=== PATIENT | male | born 1955 | race Caucasian/White ===

== ENCOUNTER 2018-12-22 05:20 | Inpatient (IN) | payer BC, OTHER ==
[~2018-12-22] VITALS: Ht 182.9 cm; Wt 95.3 kg
[2018-12-22] MEDS ORDERED: PANTOPRAZOLE 40 MG/10 ML VIAL INJ IV ONE (07:15)
[2018-12-22] MEDS ORDERED: ONDANSETRON HCL 4 MG/2 ML VIAL IV ONE (07:15)
[2018-12-22 07:17] LABS: Basophils # (auto) 0 uL; Basophils % (auto) 0.6 % (0.0-2.0); Eosinophils # (auto) 0 uL; Eosinophils % (auto) 0.9 % (0.0-7.0); Hematocrit 37.9 % (41.0-53.0); Hemoglobin 12.6 g/dL (13.5-17.5); Lymphocytes # (auto) 0.3 uL; Lymphocytes % (auto) 10.6 % (10.0-50.0); Mean Corpuscular Hemoglobin 33.7 pg (28.0-32.0); Mean Corpuscular Hgb Conc. 33.3 g/dL (32.0-36.0); Mean Corpuscular Volume 101.2 fL (80.0-100.0); Monocytes # (auto) 0.2 uL; Monocytes % (auto) 6.1 % (0.0-12.0); Neutrophils # (auto) 2.4 uL; Neutrophils % (auto) 81.8 % (37.0-80.0); Platelet Count (auto) 107 10^3/uL (140-450); Red Blood Cells 3.75 10^6/uL (4.5-5.90); Red Cell Distribution Width 16.1 % (11.8-14.3); White Blood Cell 2.9 10^3/uL (4.4-10.8)
[2018-12-22 07:31] LABS: INR 1.08 (0.9-1.15); Partial Thromboplastin Time 24.9 sec (23.64-32.05)
[2018-12-22 07:39] LABS: Albumin 2.8 g/dL (3.4-5.0); Calcium 8.8 mg/dL (8.5-10.1)
[2018-12-22 07:43] LABS: BUN/Creatinine Ratio 17.3; Bilirubin, Total 2.7 mg/dL (0.2-1.0); Total Protein 6.7 g/dL (6.4-8.2)
[2018-12-22] MEDS ORDERED: MORPHINE SULF INJ 2 MG/ML SYRINGE 1ML IV ONE (08:30)
[2018-12-22 09:24] LABS: Urine Amorphous Crystal FEW /hpf (None Seen); Urine Bacteria NONE SEEN /hpf (None Seen); Urine Blood TRACE /uL (Negative); Urine Specific Gravity 1.029 (1.001-1.035); Urine WBC 2 /hpf (0 - 3)
[2018-12-22] MEDS ORDERED: DEXTROSE (50%) 50ML SYRG IV PRN (12:00)
[2018-12-22] MEDS ORDERED: MORPHINE SULF INJ 2 MG/ML SYRINGE 1ML IV PRN (12:00)
[2018-12-22] MEDS ORDERED: SODIUM CHLORIDE 0.9% 500 ML IV ONE (12:00)
[2018-12-22] MEDS ORDERED: NITROGLYCERIN 0.4 MG SL TAB SL PRN (12:00)
[2018-12-22] MEDS: InsuLIN REG 1unit/0.01ml Soln (100units/ml) SC SCH ×2 (12:42→17:58)
[2018-12-22] MEDS: ACCU-CHEK COMFORT CURVE STRIP VI SCH ×2 (12:42→17:58)
--- NOTE | 2018-12-22 13:20 | NUR ---
Admit to [facility] CHAIDEZ admitted to [facility] via gurney on mattress and boxsprings supervisor, and portable 02. Patient transferred to bed, connected to unit monitoring and oxygen, and weighed by bedscale. Patient oriented to JAMIE HIRSCH RN primary RN, unit, room, bed, and unit policies regarding patient care and visiting hours. All questions and concerns addressed, patient verbalized understanding. Patient made aware about the plan of care, will need to collect the stool sample to Lab, and NPO.
[2018-12-22 14:00] VITALS: BP_SYST 127; BP_DIAS 5; BP_DIAS 75
--- NOTE | 2018-12-22 14:35 | NUR ---
Received a call from Dr. Wren that patient will have a dialysis tomorrow in the morning.
--- NOTE | 2018-12-22 15:05 | NUR ---
Echocardiogram obtain at the bedside.
[2018-12-22] MEDS: MORPHINE SULF INJ 2 MG/ML SYRINGE 1ML IV PRN (16:02)
[2018-12-22] MEDS: ONDANSETRON HCL 4 MG/2 ML VIAL IV PRN (16:02)
[2018-12-22] MEDS ORDERED: OMEP20TA PO (16:28)
[2018-12-22] MEDS ORDERED: SITA50TA PO (16:28)
[2018-12-22] MEDS ORDERED: GABA300C10 PO (16:28)
--- NOTE | 2018-12-22 17:57 | NUR ---
king maker at the bedside.
--- NOTE | 2018-12-22 18:36 | NUR ---
Patient sleeping at this time, dialysis on going, will continue to monitor and care, blood sugar 189 and on dialysis at this time, patient still NPO, will hold insulin as order at this time and check again after finishing of dialysis, will continue to monitor sign of hypo-hyperglycemia. Patient made aware.
[2018-12-22 21:35] LABS: Hematocrit 18.4 % (41.0-53.0)
[2018-12-22 21:38] LABS: Hemoglobin 6.2 g/dL (13.5-17.5)
--- NOTE | 2018-12-22 21:42 | NUR ---
HGB 6.2, First result, 6.1 and thought perhaps tainted. Redraw 6.2 hospitalist paged for orders. Pt had dialysis and previous HGB taken was 12.6. Pt stable at this time, current bp 91/48. Asymptomatic at this time. Will continue to monitor. p
[2018-12-22] MEDS: PANTOPRAZOLE 40 MG/10 ML VIAL INJ IV SCH (22:00)
--- NOTE | 2018-12-22 22:26 | NUR ---
Informed hospitalist of hgb 6.2, requested redraw. Informed redraw was already done, requested another redraw. H & H ordered. Will continue to monitor.
[2018-12-22 23:15] VITALS: BP 93/55
[2018-12-22 23:30] VITALS: BP 100/55
[2018-12-22 23:45] VITALS: BP 89/49
[2018-12-23] VITALS (25 sets, daily range): BP systolic 80–114; BP diastolic 43–81
[2018-12-23 00:18] LABS: Hemoglobin 5.5 g/dL (13.5-17.5)
--- NOTE | 2018-12-23 00:19 | NUR ---
HGB 5.5, hospitalist paged.
--- NOTE | 2018-12-23 05:34 | NUR ---
2 Units PRBC ordered. 1st unit almost completed. Pt not showing any S/S of reaction. Pt denies any symptoms as well. VS stable throughout infusion. Will continue to monitor and infuse second unit after current unit has infused.
[2018-12-23] MEDS: ACCU-CHEK COMFORT CURVE STRIP VI SCH ×4 (06:00→17:37)
[2018-12-23] MEDS: InsuLIN REG 1unit/0.01ml Soln (100units/ml) SC SCH ×4 (06:00→17:37)
[2018-12-23] MEDS ORDERED: B-CO1TAB24 PO (06:41)
--- NOTE | 2018-12-23 07:30 | NUR ---
ASSUMED CARE OF PATIENT AFTER RECEIVING REPORT FROM BISI FLOWERS.
--- NOTE | 2018-12-23 08:00 | NUR ---
ASSESSMENT COMPLETED - SEE SPREADSHEET. PRBCs INFUSING WITH S/S TRANSFUSION REACTION. PATIENT DENIES ABD PAIN AND/OR NAUSEA.
--- NOTE | 2018-12-23 09:15 | NUR ---
2ND UNIT PRBCs completely transfused without s/s transfusion reaction noted.
[2018-12-23] MEDS: PANTOPRAZOLE 40 MG/10 ML VIAL INJ IV SCH (10:33)
[2018-12-23 12:37] LABS: Basophils # (auto) 0.1 uL; Basophils % (auto) 0.9 % (0.0-2.0); Hemoglobin 7.8 g/dL (13.5-17.5); Lymphocytes # (auto) 1.1 uL; Monocytes # (auto) 0.4 uL; Neutrophils # (auto) 4.7 uL
[2018-12-23 12:39] LABS: Eosinophils # (auto) 0.1 uL; Eosinophils % (auto) 2.2 % (0.0-7.0); Hematocrit 22.8 % (41.0-53.0); Lymphocytes % (auto) 17.6 % (10.0-50.0); Mean Corpuscular Hemoglobin 33.6 pg (28.0-32.0); Mean Corpuscular Hgb Conc. 34.4 g/dL (32.0-36.0); Mean Corpuscular Volume 97.8 fL (80.0-100.0); Monocytes % (auto) 6.6 % (0.0-12.0); Neutrophils % (auto) 72.7 % (37.0-80.0); Platelet Count (auto) 163 10^3/uL (140-450); Red Blood Cells 2.33 10^6/uL (4.5-5.90); White Blood Cell 6.5 10^3/uL (4.4-10.8)
[2018-12-23 12:55] LABS: INR < 0.93 (0.9-1.15); Partial Thromboplastin Time 23.4 sec (23.64-32.05)
--- NOTE | 2018-12-23 12:55 | NUR ---
Call placed to re: lab results - H&H.
[2018-12-23 13:04] LABS: Alanine Aminotransferase 26 U/L (16-61); Albumin 2.9 g/dL (3.4-5.0); Anion Gap 13 (5-15); Aspartate Aminotransferase 21 U/L (15-37); BUN/Creatinine Ratio 18.4; Calcium 8.5 mg/dL (8.5-10.1); Carbon Dioxide 25 mmol/L (21-32); Chloride 107 mmol/L (98-107); GFR African American 17 mL/min; GFR Non-African American 14 mL/min; Glucose 137 mg/dL (74-106); Potassium 4.2 mmol/L (3.5-5.1); Sodium 145 mmol/L (136-145)
[2018-12-23 13:06] LABS: Alkaline Phosphatase 269 U/L (45-117); Bilirubin, Total 2.2 mg/dL (0.2-1.0); Total Protein 6.7 g/dL (6.4-8.2)
--- NOTE | 2018-12-23 13:34 | NUR ---
Dr Ethan Oconnell returned call -updated on patient condition et repeat labs - orders received.
[2018-12-23 13:43] LABS: Blood Urea Nitrogen 85 mg/dL (7-18)
[2018-12-23] MEDS: PANTOPRAZOLE 80 MG in SODIUM CHL 0.9% 60 ML IV SCH (15:30)
--- NOTE | 2018-12-23 18:50 | NUR ---
visits et examines patient - orders received.
[2018-12-24] VITALS: BP_SYST 120; BP_SYST 123; BP_DIAS 55; BP_DIAS 64
[2018-12-24] MEDS: PANTOPRAZOLE 80 MG in SODIUM CHL 0.9% 60 ML IV SCH ×2 (00:09→10:44)
[2018-12-24] MEDS: ACCU-CHEK COMFORT CURVE STRIP VI SCH ×4 (02:12→17:37)
[2018-12-24 04:00] VITALS: BP 122/60
[2018-12-24 05:57] LABS: Basophils # (auto) 0.1 uL; Eosinophils # (auto) 0.2 uL; Lymphocytes # (auto) 0.8 uL; Mean Corpuscular Hemoglobin 33.5 pg (28.0-32.0); Monocytes # (auto) 0.5 uL; White Blood Cell 5.2 10^3/uL (4.4-10.8)
[2018-12-24 05:59] LABS: Basophils % (auto) 1.2 % (0.0-2.0); Eosinophils % (auto) 3.3 % (0.0-7.0); Hemoglobin 7.4 g/dL (13.5-17.5); Lymphocytes % (auto) 14.8 % (10.0-50.0); Mean Corpuscular Hgb Conc. 33.8 g/dL (32.0-36.0); Mean Corpuscular Volume 99.1 fL (80.0-100.0); Monocytes % (auto) 9.7 % (0.0-12.0); Neutrophils # (auto) 3.7 uL; Platelet Count (auto) 156 10^3/uL (140-450); Red Blood Cells 2.22 10^6/uL (4.5-5.90); Red Cell Distribution Width 17.7 % (11.8-14.3)
[2018-12-24] MEDS: InsuLIN REG 1unit/0.01ml Soln (100units/ml) SC SCH ×4 (06:00→17:38)
[2018-12-24 06:06] LABS: Anion Gap 13 (5-15); BUN/Creatinine Ratio 18.7; Calcium 8.6 mg/dL (8.5-10.1); Carbon Dioxide 24 mmol/L (21-32); Chloride 108 mmol/L (98-107); GFR African American 15 mL/min; GFR Non-African American 13 mL/min; Glucose 106 mg/dL (74-106); Potassium 4.2 mmol/L (3.5-5.1); Sodium 145 mmol/L (136-145)
[2018-12-24 06:08] LABS: Blood Urea Nitrogen 93 mg/dL (7-18)
--- NOTE | 2018-12-24 07:30 | NUR ---
RECEIVED PATIENT SITTING UP IN THE BED, A/O TIMES 4, O2 BY N/C AT 2L, STATES HE CAN USE THE URINAL, PROTONIX AT 8ML/HR INFUSING INTO THE RFA BY THE IV PUMP, FISTULA TO THE KARLA WITH DRESSING, DENIES PAIN
--- NOTE | 2018-12-24 07:50 | NUR ---
DR STOVER IN TO SEE THE PATIENT AN ORDERED A EGD FOR TOMORROW
[2018-12-24 08:00] VITALS: BP 117/64
--- NOTE | 2018-12-24 08:40 | NUR ---
IN TO SEE THE PATIENT
--- NOTE | 2018-12-24 09:30 | NUR ---
NO CHE IN CONDITION AWARE THAT HE CAN HAVE ICE CHIPS WHICH WAS GIVEN
--- NOTE | 2018-12-24 10:00 | NUR ---
NO CHANGES IN CONDITION
--- NOTE | 2018-12-24 10:30 | NUR ---
ES IN TO SEE THE PATIENT
--- NOTE | 2018-12-24 11:00 | NUR ---
SITTING UP IN THE BED TALKING WITH THE DENIES PAIN, VOMITING AND BLOODY STOOLS
[2018-12-24 11:47] VITALS: BP 121/66
--- NOTE | 2018-12-24 12:00 | NUR ---
SITTING UP IN THE BED TALKING TO HIS AND A FRIEND
--- NOTE | 2018-12-24 12:13 | NUR ---
Nutrition Assessment Notes please see attached link for compete assessment Est. Needs BW [id number] kcal (25-27 kcal/kgBW), 114-133gms pro (1.2-1.4 gms/kgBW r/t HD). Will continue to monitor pertinent labs and reassess nutrient need prn Addendum: 12/24/18 at [address] Amended: Links added.
--- NOTE | 2018-12-24 13:00 | NUR ---
STATS HE IS DOING FINE JUST WAITING FOR THE PROCEDURE
--- NOTE | 2018-12-24 14:00 | NUR ---
CONSENTS SIGNED FOR EGD
[2018-12-24] MEDS ORDERED: SODIUM CHLORIDE LOCK 10 ML ONE (14:24)
[2018-12-24] MEDS ORDERED: LIDOCAINE VISCOUS 2% 15ML UD ONE (14:24)
[2018-12-24] MEDS ORDERED: diphenhdrAMINE HCL 50 MG/1 ML VL ONE (14:24)
--- NOTE | 2018-12-24 14:40 | NUR ---
FRIENDS IN TO VISIT WITH THE PATIENT
--- NOTE | 2018-12-24 15:22 | NUR ---
OR CALLED FOR THE PATIENT TO BE BROUGHT DOWN FOR EGD
--- NOTE | 2018-12-24 15:33 | NUR ---
TO THE OR BY THE BED
--- NOTE | 2018-12-24 15:40 | NUR ---
REPORT GIVEN TO THE GI NURSE
[2018-12-24] MEDS: fentaNYL CITRATE 100 MCG/2 ML VL ONE ×2 (15:42→15:45)
[2018-12-24] MEDS: MIDAZOLAM HCL 5 MG/ML-1ML VIAL ONE ×2 (15:42→15:45)
--- NOTE | 2018-12-24 16:45 | NUR ---
PATIENT BACK FROM THE GI LAB WITH DIAGNOSIS OF GASTRIC POLYPS, WITH BIOPSY AND AVM, VS HR [id number]/63 99%,
--- NOTE | 2018-12-24 17:18 | NUR ---
AT THE BEDSIDE, PATIENT SITTING UP IN THE BED EATING ICE CHIPS
--- NOTE | 2018-12-24 17:26 | NUR ---
ZUNILDA RN CALL FROM THE RR AND STATED TO STOP THE P[PROTONIX, NOTIFIED THE PHARMACIST
--- NOTE | 2018-12-24 18:44 | NUR ---
PATIENT SITTING UP IN THE BED, AT THE BEDSIDE, PATIENT IS A/O TIMES 4, O2 AT 2L BY N/C, WHICH HE TAKES ON AND OFF, USES THE URINAL, SALINE LOCK TO THE RFA 20G FLUSHED AND PATIENT, NO COMPLAINTS OF PAIN OR SOB, WILL CONTNINUE TO MONITOR AND GIVE REPORT TO THE NEXT SHIFT
--- NOTE | 2018-12-24 20:10 | NUR ---
Opening Shift Note Assumed care of patient, awake and alert and oriented. No S/S of distress/SOB. Patient c/o chronic lower back pain 11/19 and states he would like pain medication prior to sleep. Will medicate per orders. Complete physical assessment done: see interventions.Instructed on POC and to call for assist PRN, will continue to monitor for changes frequently.
[2018-12-24] MEDS: ONDANSETRON HCL 4 MG/2 ML VIAL IV PRN (21:45)
[2018-12-24] MEDS: MORPHINE SULF INJ 2 MG/ML SYRINGE 1ML IV PRN (21:45)
[2018-12-25] MEDS: ACCU-CHEK COMFORT CURVE STRIP VI SCH ×4 (00:18→17:52)
[2018-12-25] MEDS: InsuLIN REG 1unit/0.01ml Soln (100units/ml) SC SCH ×4 (00:54→17:52)
--- NOTE | 2018-12-25 00:57 | NUR ---
PATIENT NOTED TO DESAT TO 70'S WHILE ASLEEP. PLACED PATIENT BACK ON NC AND EDUCATED ON KEEPING NC ON. PATIENT VERBALIZES UNDERSTANDING.
[2018-12-25 04:00] VITALS: BP 114/64
[2018-12-25 05:46] LABS: Basophils # (auto) 0.1 uL; Eosinophils # (auto) 0.1 uL; Hematocrit 22.4 % (41.0-53.0); Hemoglobin 7.6 g/dL (13.5-17.5); Lymphocytes # (auto) 0.6 uL; Monocytes # (auto) 0.5 uL; Red Blood Cells 2.23 10^6/uL (4.5-5.90); White Blood Cell 4.8 10^3/uL (4.4-10.8)
[2018-12-25 05:51] LABS: Basophils % (auto) 1.4 % (0.0-2.0); Eosinophils % (auto) 3.1 % (0.0-7.0); Lymphocytes % (auto) 13.1 % (10.0-50.0); Mean Corpuscular Hemoglobin 34.1 pg (28.0-32.0); Mean Corpuscular Volume 100.4 fL (80.0-100.0); Monocytes % (auto) 11.1 % (0.0-12.0); Neutrophils # (auto) 3.5 uL; Neutrophils % (auto) 71.3 % (37.0-80.0); Platelet Count (auto) 160 10^3/uL (140-450)
[2018-12-25 06:22] LABS: BUN/Creatinine Ratio 18.9; Potassium 4.6 mmol/L (3.5-5.1)
[2018-12-25 06:26] LABS: % Iron Saturation 17.4 % (20-55)
--- NOTE | 2018-12-25 06:58 | NUR ---
AM CARE ASSISTED PATIENT TO RESTROOM AND PROVIDED PATIENT WITH WARM SOAPY WASH CLOTHS. PATIENT WAS ABLE TO INDEPENDENTLY CLEANSE SELF. COMPLETE BED LINEN CHANGE DONE. PATIENT BACK IN BED WITH NO ISSUES. CALL LIGHT GIVEN TO PATIENT . WILL ENDORSE CARE TO DAY SHIFT RN.
--- NOTE | 2018-12-25 07:30 | NUR ---
RECEIVED PATIENT SITTING UP IN BED, A/O TIMES 4, O2 BY R/A, DENIES PAIN AND NO VOMITING OF BLOOD OR BLOODY STOOLS DURING THE NIGHT, SALINE LOCK 20G TO THE RFA INTACT, FLUSHED AND PATENT, USES THE URINAL
--- NOTE | 2018-12-25 07:45 | NUR ---
DR STOVER IN TO SEE THE PATIENT AND EXPRESS TO HIM THAT HE NEEDS TO FOLLOW UP WITH HER A OUTPATIENT
[2018-12-25 07:50] VITALS: BP 133/62
[2018-12-25] MEDS ORDERED: SODIUM CHL 0.9% 1000 ML BAG XX ONE (08:30)
--- NOTE | 2018-12-25 08:30 | NUR ---
SAT UP IN BED AND ATE HIS BREAKFAST NO HELP NEEDED
--- NOTE | 2018-12-25 08:45 | NUR ---
DR SAMSON IN TO SEE THE PATIENT
[2018-12-25 09:14] LABS: Ferritin 967.1 ng/mL (10-322); Folate (Folic Acid) > 24.00 ng/mL (5.38-24)
--- NOTE | 2018-12-25 10:00 | NUR ---
DIALYSES CONTINUE NO PROBLEMS Addendum: 12/25/18 at 1156 by Carla Parisi RN CHANGE TO 1100
--- NOTE | 2018-12-25 10:00 | NUR ---
NO AM MEDS FOR THE PATIENT SITTING UP IN BED, IN TO VISIT
--- NOTE | 2018-12-25 11:20 | NUR ---
DIALYSIS STARTED, Addendum: 12/25/18 at 1150 by Carla Parisi RN CHANGE TIME TO 09
--- NOTE | 2018-12-25 11:49 | NUR ---
CONTINUES WITH DIALYSIS AND TOLERATING, AT THE BEDSIDE
[2018-12-25 11:50] VITALS: BP 112/63
--- NOTE | 2018-12-25 11:58 | NUR ---
BS 147, GAVE 2 UNITS OF REGULAR INSULIN
[2018-12-25] MEDS ORDERED: SODIUM FERR GLUC 62.5MG/5ML 125 MG in SODIUM CHL 0.9% 100 ML IV SCH (12:00)
--- NOTE | 2018-12-25 12:20 | NUR ---
DIALYSIS FINISHED AND REMOVED 2L OF FLUID AND PATIENT TOLERATED NO PROBLEMS, B/P STABLE
--- NOTE | 2018-12-25 13:34 | NUR ---
sitting up in bed after eating his lunch states he is doing okay, at the bedside
--- NOTE | 2018-12-25 13:43 | NUR ---
PER LINE MECHANIC PATIENT IS ABLE TO WALK HAS NOT WALKED FOR ME TODAY, NONI HAS A LOT OF PAINN TO HIS LEGS WHEN HE WALKS AND PREFERS TO STAY IN THE BED
--- NOTE | 2018-12-25 14:49 | NUR ---
PATIENT SITTING UP IN BED WATCHNG TV, STATES HE IS DOING OKAY AT THE BEDSIDE , WAITING FOR MD TO COME AND SE IF HE CAN BE DISCHARGED HOME
--- NOTE | 2018-12-25 15:15 | NUR ---
STANDING UP IN THE ROOM AT THE BEDSIDE WHILE THE SCRATCHES HIS BACK
[2018-12-25 15:52] VITALS: BP 113/51
--- NOTE | 2018-12-25 16:05 | NUR ---
NO COMPLAINTS OF PAIN WATCHNG TV, AT THE BEDSIDE
--- NOTE | 2018-12-25 17:19 | NUR ---
STILL WAITING FOR THE MD TO COME AND SEE IF HE CAN BE SENT HOME, SITTING UP IN BED WATCHNG TV,
[2018-12-25] MEDS ORDERED: OMEP20TA PO (17:23)
[2018-12-25] MEDS ORDERED: FER325T PO (17:23)
--- NOTE | 2018-12-25 17:25 | NUR ---
DR REEVES IN TO SEE THE PATIENT AND WROTE DISCHARGE ORDERS
[2018-12-25 17:56] VITALS: BP 113/51
--- NOTE | 2018-12-25 18:25 | NUR ---
DISCHARGE INSTRUCTIONS GIVEN TO THE AND THE PATIENT WITH PRESCRIPTIONS, VERBALIZED THAT THEY UNDERSTOOD AND WILL CALL AND MAKE FOLLOW UP APPOINTMENT TOMORROW, NO QUESTIONS REGARDING HIS STAY HERE, STATED THAT EVERYTHING WAS GREAT, IV 20G REMOVED FROM THE RFA AND DRESSING PLACED, REMINDED PATIENT TO TAKE OFF THE DRESSING AFTER HE GETS HOME
--- NOTE | 2018-12-25 18:30 | NUR ---
PATIENT TAKEN TO PRIVATE VEHICLE BY THE W/C, STATES HE HAS ALL BELONGINGS
[2018-12-25] MEDS ORDERED: EPOETIN ALFA 4,000 UNIT/ML VL SC ONE (21:00)
[2018-12-26 08:06] LABS: Immunoglobulin G, Serum 1308 mg/dL (700-1600)
--- NOTE | 2018-12-26 09:53 | NUR ---
ss order faxed to [facility]
== END 2018-12-25 17:50 | disposition home or self-care (01) | DRG 377 ==
LOC: ER 05:20 → TELE 05:21 → DOU IN ICU 13:23
PROVIDERS: ADMIT Nurse Practitioner Acute Care; ATTEND Internal Medicine
PROC: 5A1D70Z Performance of Urinary Filtration, Intermittent, Less than 6 Hours Per Day (ICD-10-PCS; principal; 2018-12-22)
PROC: 30233N1 Transfusion of Nonautologous Red Blood Cells into Peripheral Vein, Percutaneous Approach (ICD-10-PCS; 2018-12-23)
PROC: 0DJ08ZZ Inspection of Upper Intestinal Tract, Via Natural or Artificial Opening Endoscopic (ICD-10-PCS; 2018-12-24)
PROC: 5A1D70Z Performance of Urinary Filtration, Intermittent, Less than 6 Hours Per Day (ICD-10-PCS; 2018-12-25)
DX: K55.21 Angiodysplasia of colon with hemorrhage (principal); N18.6 End stage renal disease; I13.11 Hypertensive heart and chronic kidney disease without heart failure, with stage 5 chronic kidney disease, or end stage renal disease; E44.0 Moderate protein-calorie malnutrition; Z94.84 Stem cells transplant status; D63.8 Anemia in other chronic diseases classified elsewhere; D69.6 Thrombocytopenia, unspecified; E11.22 Type 2 diabetes mellitus with diabetic chronic kidney disease; K21.9 Gastro-esophageal reflux disease without esophagitis; K31.7 Polyp of stomach and duodenum; K76.89 Other specified diseases of liver; M54.31 Sciatica, right side; Z79.4 Long term (current) use of insulin; Z99.2 Dependence on renal dialysis; Z79.84 Long term (current) use of oral hypoglycemic drugs; Z79.899 Other long term (current) drug therapy
CPT/HCPCS: 36415; 71045; 74176; 80048; 80053; 81001; 82607; 82728; 82746; 82784; 82962; 83036; 83540; 83550; 83615; 83883; 85014; 85018; 85025; 85045; 85610; 85730; 86334; 86850; 86880; 86900; 86901; 86920; 87081; 90935; 93306; 96374; 96375; C9113; G0378; J1815; J2250; J2405

== ENCOUNTER 2020-01-07 09:07 | Inpatient (IN) | payer BC ==
[~2020-01-07] VITALS: Ht 185.4 cm; Wt 92.6 kg
[~2020-01-07 09:07] MED LIST: B-CO1TAB24 PO; FER325T PO; GABA300C10 PO; OMEP20TA PO; SITA50TA PO
[2020-01-07] MEDS ORDERED: ONDANSETRON HCL 4 MG/2 ML VIAL IV ONE (10:00)
[2020-01-07 10:15] LABS: Basophils # (auto) 0 10 ^3/uL (0-0.2); Eosinophils # (auto) 0.1 10 ^3/uL (0-0.8); Eosinophils % (auto) 0.8 % (0.0-7.0); Lymphocytes # (auto) 0.8 10 ^3/uL (0.4-5.4); Neutrophils # (auto) 6.1 10 ^3/uL (1.6-8.6); Nucleated Red Blood Cells % 0.2 %; Red Cell Distribution Width 14.3 % (11.8-14.3); White Blood Cell 7.6 10^3/uL (4.4-10.8)
[2020-01-07 10:17] LABS: Basophils % (auto) 0.6 % (0.0-2.0); Hematocrit 15.9 % (41.0-53.0); Lymphocytes % (auto) 11.2 % (10.0-50.0); Mean Corpuscular Hemoglobin 34.9 pg (28.0-32.0); Mean Corpuscular Hgb Conc. 34.7 g/dL (32.0-36.0); Mean Corpuscular Volume 100.5 fL (80.0-100.0); Monocytes # (auto) 0.6 10 ^3/uL (0-1.3); Monocytes % (auto) 7.3 % (0.0-12.0); Neutrophils % (auto) 80.1 % (37.0-80.0); Platelet Count (auto) 155 10^3/uL (140-450); Red Blood Cells 1.58 10^6/uL (4.5-5.90)
[2020-01-07 10:19] LABS: Hemoglobin 5.5 g/dL (13.5-17.5)
[2020-01-07 10:34] LABS: Albumin 2.9 g/dL (3.4-5.0); Magnesium 2.1 mg/dL (1.6-2.6); Potassium 3.9 mmol/L (3.5-5.1)
[2020-01-07 10:40] LABS: BUN/Creatinine Ratio 17.6; Total Protein 6.6 g/dL (6.4-8.2)
[2020-01-07] MEDS ORDERED: SODIUM CHLORIDE 0.9% 500 ML IV ONE (10:45)
[2020-01-07 11:10] LABS: Lactic Acid w/Reflex 2.4 mmol/L (0.4-2.0)
[2020-01-07] MEDS ORDERED: LIDOCAINE 2%HCL (LOCAL ANESTH.) INJ 20ML MDV ONE ×2 (12:02→12:13)
[2020-01-07] MEDS ORDERED: ANGIOMAX 250 MG VIAL IV ONE ×2 (12:12→12:47)
[2020-01-07] MEDS ORDERED: ATROPINE SULF 1 MG/10ml SYR ONE (12:12)
[2020-01-07] MEDS ORDERED: IODIXANOL 320MG/ML 100ML BTL IV ONE ×2 (12:13→13:21)
[2020-01-07] MEDS ORDERED: SODIUM CHL 0.9% 0 ML ONE (12:13)
[2020-01-07] MEDS ORDERED: MIDAZOLAM HCL 1MG/1ML-2 ML VIAL ONE (12:13)
[2020-01-07] MEDS ORDERED: fentaNYL CITRATE 100 MCG/2 ML VL ONE (12:13)
[2020-01-07] MEDS ORDERED: VERAPAMIL 2.5MG/ML INJ 2ML VIAL IV ONE (12:14)
[2020-01-07] MEDS ORDERED: HEPARIN SODIUM (PORCINE) 5000 UNITS/ML 1ML VIAL ONE (12:14)
[2020-01-07 12:25] VITALS: BP 113/63
[2020-01-07 12:45] LABS: INR 1.42 (0.9-1.15); Partial Thromboplastin Time 28.2 sec (23.64-32.05)
[2020-01-07] MEDS ORDERED: NITROGLYCERIN 0.4 MG SL TAB SL PRN (12:45)
[2020-01-07] MEDS ORDERED: DOCUSATE SOD 100 MG CAP PO PRN (12:45)
[2020-01-07] MEDS ORDERED: MORPHINE SULF INJ 2 MG/ML SYRINGE 1ML IV PRN ×2 (12:45)
[2020-01-07] MEDS ORDERED: ACETAMINOPHEN 325 MG TAB PO PRN (12:45)
[2020-01-07] MEDS ORDERED: ONDANSETRON HCL 4 MG/2 ML VIAL IV PRN (12:45)
[2020-01-07] MEDS ORDERED: HYDROcodone-ACET 5/325MG TAB PO PRN (12:45)
[2020-01-07] MEDS ORDERED: ALUM & MAG HYDROX-SIMETH LIQ(MAALOX) 30 ML PO PRN (12:45)
[2020-01-07] MEDS ORDERED: SODIUM CHL 0.9% 50 ML ONE (12:47)
[2020-01-07] MEDS ORDERED: CLOPIDOGREL 300 MG TAB ONE (14:07)
[2020-01-07] MEDS ORDERED: ASPirin 325 MG TAB ONE (14:07)
[2020-01-07] MEDS ORDERED: DEXTROSE (50%) 50ML SYRG IV PRN (18:00)
--- NOTE | 2020-01-07 18:00 | NUR ---
Report received from outside laborer. KAYLYNNCARIDAD brought to bed 281A following Cardiac catheterization. Patient transfered to unit bed, connected to vehicle monitor technician # [id number] SR [id number], [id number], breathing even, non labored, S1, S2, lungs clear lashon to auscultation, Denied of chest pain at this time. Fistula dialysis cath to left UA . Catheterization site assessed for any bleeding, redness or swelling. Angio seal device to right groin deflated per outside laborer RN . Pedal pulses on affected leg assessed for positive tissue perfusion. Patient instructed on need to notify staff immediately if any pain, burning or wetness to site, and any lower back pain. All questions and concerns addressed, patient verbalized understanding of all education and instruction. Bed locked in the lowest position, call light within easy reach, will continue care.
[2020-01-07] MEDS ORDERED: INSLANTI SC (18:19)
[2020-01-07] MEDS ORDERED: OMEP20TA PO (18:24)
[2020-01-07] MEDS ORDERED: B-COTAB10 PO (18:25)
[2020-01-07 19:28] LABS: Basophils # (auto) 0 10 ^3/uL (0-0.2); Basophils % (auto) 0.3 % (0.0-2.0); Eosinophils # (auto) 0 10 ^3/uL (0-0.8); Hematocrit 18.2 % (41.0-53.0); Lymphocytes # (auto) 0.8 10 ^3/uL (0.4-5.4); Monocytes # (auto) 0.8 10 ^3/uL (0-1.3); White Blood Cell 8.1 10^3/uL (4.4-10.8)
[2020-01-07 19:29] LABS: Eosinophils % (auto) 0.4 % (0.0-7.0); Lymphocytes % (auto) 9.4 % (10.0-50.0); Mean Corpuscular Hemoglobin 34.6 pg (28.0-32.0); Mean Corpuscular Hgb Conc. 34.2 g/dL (32.0-36.0); Mean Corpuscular Volume 101.4 fL (80.0-100.0); Monocytes % (auto) 9.5 % (0.0-12.0); Neutrophils # (auto) 6.5 10 ^3/uL (1.6-8.6); Neutrophils % (auto) 80.4 % (37.0-80.0); Nucleated Red Blood Cells % 0.5 %; Platelet Count (auto) 173 10^3/uL (140-450); Red Blood Cells 1.79 10^6/uL (4.5-5.90)
--- NOTE | 2020-01-07 19:45 | NUR ---
Critical Lab Value Hgb=6.2; Hgb increased from 5.5 after 1 unit of blood. 1 unit of PRBCs pending transfusion and will be given now.
[2020-01-07 19:46] LABS: Hemoglobin 6.2 g/dL (13.5-17.5)
[2020-01-07 20:00] VITALS: BP 93/59
--- NOTE | 2020-01-07 20:00 | NUR ---
Opening Shift Note Assumed care of patient, awake and alert. A&Ox4. Patient laying in bed. No S/S of distress/SOB or pain. Safety measures maintained by keeping the bed locked in lowest position, 2 side rails up, personal items and call light within reach. Instructed on POC and to call for assist PRN, will continue to monitor for changes Q1hr and PRN. Patient placed on 3L via NC O2 sat. at 100%. Angioseal is still applied to right groin incision site, site is clean, dry and intact with no bleeding noted. Patient reported no pain. Removed angioseal, dressed site with gauze and tegaderm. Patient tolerated dressing change well. Patient instructed to notify RN of any changes to the site.
[2020-01-07 21:10] VITALS: BP 100/64
[2020-01-07 21:25] VITALS: BP 100/61
[2020-01-07 22:10] VITALS: BP 94/54
[2020-01-07] MEDS: ACCU-CHEK COMFORT CURVE STRIP VI SCH (22:26)
[2020-01-07] MEDS: InsuLIN REG 1unit/0.01ml Soln (100units/ml) SC SCH (22:27)
[2020-01-08 01:17] VITALS: BP 95/58
[2020-01-08 05:00] VITALS: BP 106/61
[2020-01-08 05:25] LABS: Basophils # (auto) 0 10 ^3/uL (0-0.2); Basophils % (auto) 0.4 % (0.0-2.0); Eosinophils # (auto) 0.1 10 ^3/uL (0-0.8); Eosinophils % (auto) 0.6 % (0.0-7.0); Hematocrit 20.3 % (41.0-53.0); Hemoglobin 7.1 g/dL (13.5-17.5); Lymphocytes # (auto) 0.7 10 ^3/uL (0.4-5.4); Lymphocytes % (auto) 7.8 % (10.0-50.0); Mean Corpuscular Hemoglobin 34.8 pg (28.0-32.0); Mean Corpuscular Hgb Conc. 34.8 g/dL (32.0-36.0); Mean Corpuscular Volume 100.2 fL (80.0-100.0); Monocytes # (auto) 0.9 10 ^3/uL (0-1.3); Neutrophils # (auto) 7.4 10 ^3/uL (1.6-8.6); Neutrophils % (auto) 81.2 % (37.0-80.0); Nucleated Red Blood Cells % 0.7 %; Platelet Count (auto) 163 10^3/uL (140-450); Red Blood Cells 2.03 10^6/uL (4.5-5.90); Red Cell Distribution Width 15.8 % (11.8-14.3); White Blood Cell 9.1 10^3/uL (4.4-10.8)
[2020-01-08 05:49] LABS: Albumin 2.7 g/dL (3.4-5.0); Calcium 8.3 mg/dL (8.5-10.1); Potassium 4.5 mmol/L (3.5-5.1)
[2020-01-08 05:53] LABS: BUN/Creatinine Ratio 19.5; Bilirubin, Total 1.2 mg/dL (0.2-1.0); Total Protein 6.2 g/dL (6.4-8.2)
[2020-01-08] MEDS: InsuLIN REG 1unit/0.01ml Soln (100units/ml) SC SCH ×4 (06:18→22:00)
[2020-01-08] MEDS: ACCU-CHEK COMFORT CURVE STRIP VI SCH ×4 (06:38→22:00)
[2020-01-08 09:00] VITALS: BP 111/61
[2020-01-08 13:00] VITALS: BP 123/57
[2020-01-08] MEDS ORDERED: IRON SUCROSE COMPLEX 200 MG in SODIUM CHL 0.9% 100 ML IV SCH (15:15)
--- NOTE | 2020-01-08 16:30 | NUR ---
Slubber Tender Received phone call from Dr. Musa, patient will be scheduled for dialysis 01/08 since he had left heart cath 01/06.
[2020-01-08] MEDS: SODIUM FERR GLUC 62.5MG/5ML 125 MG in SODIUM CHL 0.9% 100 ML IV SCH (16:40)
[2020-01-08 17:38] VITALS: BP 99/60
[2020-01-08] MEDS: RAMIPRIL 2.5 MG CAP PO SCH (17:45)
--- NOTE | 2020-01-08 19:40 | NUR ---
Opening Shift Note Assumed care of patient, awake and alert. No S/S of distress/SOB or pain. Instructed on POC and to call for assist PRN, patient verbalized understanding. Safety precaution in place, call light within reach, will continue to monitor for changes Q1hr and PRN.
[2020-01-08 22:00] VITALS: BP 104/42
[2020-01-08] MEDS: SODIUM CHLOR 0.9% PF (SALINE LOCK) 10ML VIAL/SYR IV SCH (22:00)
[2020-01-08] MEDS: GABAPENTIN 100 MG CAP PO SCH (22:30)
[2020-01-08] MEDS: ATORVASTATIN 20 MG TAB PO SCH (22:30)
[2020-01-09] VITALS (8 sets, daily range): BP systolic 94–130; BP diastolic 47–65
[2020-01-09] MEDS: ACCU-CHEK COMFORT CURVE STRIP VI SCH ×4 (06:05→21:07)
[2020-01-09] MEDS: InsuLIN REG 1unit/0.01ml Soln (100units/ml) SC SCH ×4 (06:05→21:17)
[2020-01-09] MEDS: CARVEDILOL 3.125 MG TAB PO SCH (06:12)
[2020-01-09] MEDS: SODIUM CHLOR 0.9% PF (SALINE LOCK) 10ML VIAL/SYR IV SCH ×3 (06:12→21:06)
[2020-01-09] MEDS: GABAPENTIN 100 MG CAP PO SCH ×2 (09:53→21:07)
[2020-01-09] MEDS: ASPirin-EC 81 mg tab PO SCH (09:53)
[2020-01-09] MEDS ORDERED: SODIUM CHL 0.9% 1000 ML BAG XX ONE (11:00)
[2020-01-09] MEDS ORDERED: [UNRECOGNIZED DRUG - CODE] PO (11:22)
[2020-01-09] MEDS ORDERED: CLOP75TA41 PO (11:22)
[2020-01-09] MEDS ORDERED: CAR3125T PO (11:22)
[2020-01-09] MEDS ORDERED: ATOR20TA50 PO (11:22)
[2020-01-09] MEDS ORDERED: GAB100C PO (11:22)
[2020-01-09] MEDS ORDERED: ASPI-394 PO (11:22)
[2020-01-09] MEDS: SODIUM FERR GLUC 62.5MG/5ML 125 MG in SODIUM CHL 0.9% 100 ML IV SCH (12:00)
[2020-01-09 17:26] LABS: Hematocrit 20.5 % (41.0-53.0); Hemoglobin 7.2 g/dL (13.5-17.5)
[2020-01-09] MEDS: RAMIPRIL 2.5 MG CAP PO SCH (17:59)
--- NOTE | 2020-01-09 20:00 | NUR ---
Opening Shift Note Assumed care of patient, awake and alert. No S/S of distress/SOB or pain. Instructed on POC and to call for assist PRN, will continue to monitor for changes Q1hr and PRN.
[2020-01-09] MEDS ORDERED: EPOETIN ALFA 10,000 UNIT/1 ML VIAL SC ONE (21:00)
[2020-01-09] MEDS: ATORVASTATIN 20 MG TAB PO SCH (21:06)
--- NOTE | 2020-01-09 21:39 | NUR ---
Spoke with pt. Pt states that they last had a BM on the Per the pt, they have had little appetite and that is typical for them. Bowel sounds heard and no distension or constipation noted. Will continue to monitor.
[2020-01-10] VITALS (9 sets, daily range): BP systolic 96–111; BP diastolic 50–62
--- NOTE | 2020-01-10 00:57 | NUR ---
RECEIVED CALL FROM MD GRACE PER MD, PATIENT TO BE SCHEDULED FOR A CHAINSTITCH TUNNEL ELASTIC OPERATOR PROCEDURE IN AM. PATIENT TO SIGN CONSENTS AND BE PREPPED. COLLECTIONS PROFESSIONAL INFORMED AND CONSENTS TO BE SIGNED. WILL CONTINUE TO MONITOR.
--- NOTE | 2020-01-10 04:15 | NUR ---
OPENING SHIFT NOTE Assumed care of patient who is A&O x4. Currently on RA with no s/s of distress. Denies pain at this time. Fistula present in left arm. Dressing is CDI. PIVs in right wrist and right AC are intact and patent; both flushed with 10ml NS. Patient ambulates with the use of a cane at baseline. Cane is not present at the bedside. POC discussed and patient verbalizes understanding. Bed is in low locked position with side rails up x2. Call light is within reach and patient encouraged to call for assistance when needed. Will continue to monitor for changes PRN.
[2020-01-10] MEDS: SODIUM CHLOR 0.9% PF (SALINE LOCK) 10ML VIAL/SYR IV SCH ×3 (04:53→22:23)
[2020-01-10] MEDS: CARVEDILOL 3.125 MG TAB PO SCH (04:53)
[2020-01-10 06:34] LABS: Basophils # (auto) 0 10 ^3/uL (0-0.2); Eosinophils # (auto) 0.3 10 ^3/uL (0-0.8); Red Blood Cells 2.01 10^6/uL (4.5-5.90); White Blood Cell 8.8 10^3/uL (4.4-10.8)
[2020-01-10 06:38] LABS: Basophils % (auto) 0.6 % (0.0-2.0); Eosinophils % (auto) 3.5 % (0.0-7.0); Hematocrit 20.2 % (41.0-53.0); Lymphocytes # (auto) 0.7 10 ^3/uL (0.4-5.4); Lymphocytes % (auto) 8.3 % (10.0-50.0); Mean Corpuscular Hemoglobin 34.1 pg (28.0-32.0); Mean Corpuscular Hgb Conc. 33.9 g/dL (32.0-36.0); Mean Corpuscular Volume 100.6 fL (80.0-100.0); Monocytes # (auto) 0.9 10 ^3/uL (0-1.3); Neutrophils # (auto) 6.8 10 ^3/uL (1.6-8.6); Neutrophils % (auto) 77.6 % (37.0-80.0); Nucleated Red Blood Cells % 0.9 %; Platelet Count (auto) 207 10^3/uL (140-450); Red Cell Distribution Width 16.6 % (11.8-14.3)
--- NOTE | 2020-01-10 06:41 | NUR ---
UNABLE TO OBTAIN SIGNATURES FOR CONSENT FROM PATIENT PER PATIENT, HE WAS NOT SPOKEN TO BY MD AND DOES NOT FEEL COMFORTABLE SIGNING CONSENTS. PATIENT STATES THEY ARE WILLING TO BE TAKEN DOWN TO PERSONAL SERVICE REPRESENTATIVE AND SPEAK TO MD AND THEN BE WILLING TO SIGN. WILL CONTINUE TO MONITOR.
[2020-01-10 06:43] LABS: Hemoglobin 6.8 g/dL (13.5-17.5)
--- NOTE | 2020-01-10 06:43 | NUR ---
CRITICAL LAB HGB OF 6.8. VOICEMAIL LEFT WITH BEATER HEAD MD REEVES FOR MD TOWNSEND. WILL AWAIT CALL BACK OR ORDERS.
[2020-01-10 06:48] LABS: Albumin 2.5 g/dL (3.4-5.0); BUN/Creatinine Ratio 15.2; Calcium 8.2 mg/dL (8.5-10.1); Potassium 3.7 mmol/L (3.5-5.1)
--- NOTE | 2020-01-10 06:50 | NUR ---
MD REEVES CONTACTED CRITICAL LAB STATED AND ORDERS RECEIVED. ORDERS PLACED AND WILL ENDORSE TO ALEXANDRA FLOWERS.
[2020-01-10 06:54] LABS: INR 1.3 (0.9-1.15); Partial Thromboplastin Time 29.7 sec (23.0-31.2)
[2020-01-10] MEDS: InsuLIN REG 1unit/0.01ml Soln (100units/ml) SC SCH ×4 (07:00→22:11)
[2020-01-10] MEDS: ACCU-CHEK COMFORT CURVE STRIP VI SCH ×4 (07:15→21:54)
--- NOTE | 2020-01-10 08:00 | NUR ---
RECEIVED CALL FROM DR Constantino GRACE. PER DR Constantino GRACE PATIENT WILL NOT HAVE PROCEDURE TODAY, DUE TO LOW HGB 6.8 HE WILL RESCHEDULE FOR MONDAY PATIENT TO BE NPO MONDAY AT MIDNIGHT. PATIENT IS ALSO TO HAVE 1 UNIT OF BLOOD STARTING TODAY 01/10/20, Monday01/11/20 AND Monday01/12/20 SO HGB WILL GO UP, WHICH IS NEEDED IN ORDER TO DO PROCEDURE HGB NEEDS TO BE AT 9 . PATIENT ALSO TO CONTINUE ON ASA 81 MG DAILY AND PLAVIX [address] Constantino GRACE. I TOLD DR Constantino GRACE THERE IS NO ORDERS FOR PLAVIX SO I WILL TAKE THE TELEPHONE ORDER AND PLACE.
[2020-01-10] MEDS: ASPirin-EC 81 mg tab PO SCH (11:44)
[2020-01-10] MEDS: CLOPIDOGREL BISULFATE 75 MG TAB PO SCH (11:44)
[2020-01-10] MEDS: GABAPENTIN 100 MG CAP PO SCH ×2 (11:44→21:54)
--- NOTE | 2020-01-10 11:45 | NUR ---
BLOOD TRANSFUSION STARTED ST 11:38 AM PATIENT TOLERATING WELL NO S/S OF DISTRESS NOTED OR ALLERGIC REACTION.
[2020-01-10] MEDS: SODIUM FERR GLUC 62.5MG/5ML 125 MG in SODIUM CHL 0.9% 100 ML IV SCH (12:00)
--- NOTE | 2020-01-10 13:00 | NUR ---
Nutrition Assessment Note Please see attached link for complete assessment Est energy needs BW 91 [id number] kcal (30-33kcal/kg BW), Est protein 109-127g (1.2-1.4 g/kg BW r/t HD). Will reassess prn. Addendum: 01/10/20 at [address] Amended: Links added.
--- NOTE | 2020-01-10 13:30 | NUR ---
PT IS RECEIVING BLOOD TRANSFUSION. ATTEMPT P.T. TOMORROW.
--- NOTE | 2020-01-10 14:15 | NUR ---
PATIENT BLOOD TRANSFUSION DONE, NO ADVERSE REACTIONS, PATIENT TOLERATED WELL. END VS ARE FOLLOWS 92%, 18, 86, 103/57, 99.1
[2020-01-10] MEDS: RAMIPRIL 2.5 MG CAP PO SCH (17:38)
[2020-01-10] MEDS ORDERED: IRON SUCROSE COMPLEX 200 MG in SODIUM CHL 0.9% 100 ML IV SCH (18:00)
[2020-01-10] MEDS: ATORVASTATIN 20 MG TAB PO SCH (21:53)
--- NOTE | 2020-01-10 23:20 | NUR ---
AT BEDSIDE Dr. Bryant at bedside discussing plan of care with patient.
[2020-01-11] VITALS (10 sets, daily range): BP systolic 104–135; BP diastolic 54–66
[2020-01-11] MEDS ORDERED: CLOPIDOGREL BISULFATE 75 MG TAB PO ONE (00:15)
[2020-01-11] MEDS: SODIUM CHLOR 0.9% PF (SALINE LOCK) 10ML VIAL/SYR IV SCH ×3 (05:44→22:00)
[2020-01-11] MEDS: ACCU-CHEK COMFORT CURVE STRIP VI SCH ×4 (06:07→21:51)
[2020-01-11] MEDS: InsuLIN REG 1unit/0.01ml Soln (100units/ml) SC SCH ×4 (06:11→21:56)
[2020-01-11] MEDS: CARVEDILOL 3.125 MG TAB PO SCH (06:24)
[2020-01-11] MEDS ORDERED: SODIUM CHL 0.9% 1000 ML BAG XX ONE (07:00)
--- NOTE | 2020-01-11 07:30 | NUR ---
Opening Shift Note Assumed care of patient, awake and alert. No S/S of distress/SOB or pain. Instructed on POC and to call for assist PRN, will continue to monitor for changes Q1hr and PRN. Bed is locked and in lowest position. Call light within reach.
[2020-01-11 07:58] LABS: Hemoglobin 8.2 g/dL (13.5-17.5)
[2020-01-11 08:01] LABS: Hematocrit 24.5 % (41.0-53.0)
[2020-01-11] MEDS: GABAPENTIN 100 MG CAP PO SCH ×2 (09:51→21:50)
[2020-01-11] MEDS: ASPirin-EC 81 mg tab PO SCH (09:51)
[2020-01-11] MEDS: CLOPIDOGREL BISULFATE 75 MG TAB PO SCH (09:51)
--- NOTE | 2020-01-11 12:42 | NUR ---
PRBC's 1 unit of PRBC's started by Fred Daly, Hemodialysis nurse.
--- NOTE | 2020-01-11 13:15 | NUR ---
PRBC's 1 unit of PRBC's transfused and completed during Hemodialysis, no adverse reactions noted.
--- NOTE | 2020-01-11 16:50 | NUR ---
IV D/C IV ON RIGHT UPPER ARM DISCONTINUED DUE TO CATHETER BEING OUT. PATIENT C/O PAIN AT IV SITE. IV CATHETER REMOVED USING CLEAN TECHNIQUE, IV CATHETER INTACT WITH NO SIGNS OF INFECTION, GAUZE AND COBAND APPLIED. WILL CONTINUE TO MONITOR SITE.
[2020-01-11] MEDS ORDERED: InsuLIN REG 1unit/0.01ml Soln (100units/ml) ONE (18:02)
[2020-01-11 18:05] LABS: Hematocrit 26.8 % (41.0-53.0)
[2020-01-11] MEDS: RAMIPRIL 2.5 MG CAP PO SCH (18:06)
[2020-01-11] MEDS: SODIUM FERR GLUC 62.5MG/5ML 125 MG in SODIUM CHL 0.9% 100 ML IV SCH (18:08)
--- NOTE | 2020-01-11 19:40 | NUR ---
OPENING SHIFT NOTE Assumed care of patient who is A&O x4. Currently on 2L NC with no s/s of distress. denies pain at this time. Patient is s/p dialysis today with 2L removed and 1unit PRBCs transfused. Patient denies any adverse effects. Fistula in left upper arm is intact. Thrill and bruit present. Dressing is CDI. POC discussed and patient verbalizes understanding. Bed is in low locked position with side rails up x2. Call light is within reach and patient encouraged to call for assistance when needed. Will continue to monitor for changes PRN.
--- NOTE | 2020-01-11 20:55 | NUR ---
IV LEAKING IV to right wrist flushed and is leaking. 2 attempts to obtain new veinous access made without success. Will have another RN attempt to insert new IV.
[2020-01-11] MEDS ORDERED: EPOETIN ALFA 10,000 UNIT/1 ML VIAL SC ONE (21:00)
[2020-01-11] MEDS: ATORVASTATIN 20 MG TAB PO SCH (21:50)
[2020-01-12] VITALS (9 sets, daily range): BP systolic 105–126; BP diastolic 53–76
[2020-01-12] MEDS: SODIUM CHLOR 0.9% PF (SALINE LOCK) 10ML VIAL/SYR IV SCH ×3 (06:29→22:24)
[2020-01-12] MEDS: ACCU-CHEK COMFORT CURVE STRIP VI SCH ×4 (06:31→22:19)
[2020-01-12] MEDS: CARVEDILOL 3.125 MG TAB PO SCH (06:31)
[2020-01-12] MEDS: InsuLIN REG 1unit/0.01ml Soln (100units/ml) SC SCH ×4 (06:34→22:23)
--- NOTE | 2020-01-12 09:15 | NUR ---
DR. Destin GRACE PHONE CALL MADE TO DR. Destin GRACE REGARDING PATIENT SCHEDULED BLOOD TRANSFUSION. HEMOGLOBIN DRAWN 01/10 IT READ AT 9 MG/DL AFTER SECOND BLOOD TRANSFUSION. WILL AWAIT ORDERS FOR BLOOD TRANSFUSION SCHEDULED 01/11.
[2020-01-12] MEDS: ASPirin-EC 81 mg tab PO SCH (09:48)
[2020-01-12] MEDS: GABAPENTIN 100 MG CAP PO SCH ×2 (09:48→22:23)
[2020-01-12] MEDS: CLOPIDOGREL BISULFATE 75 MG TAB PO SCH (09:48)
--- NOTE | 2020-01-12 12:55 | NUR ---
DR. Destin GRACE RETURNED CALL REGARDING THIRD BLOOD TRANSFUSION WITH HEMOGLOBIN OF 9 MG/DL. DR. Destin GRACE ORDERED THIRD BLOOD TRANSFUSION TO BE CARRIED OUT. ORDERS WILL BE CARRIED OUT.
--- NOTE | 2020-01-12 14:15 | NUR ---
BLOOD TRANSFUSION INITIATED AT 1415 PM PATIENT TOLERATING WELL WITH NO SIGNS OF DISTRESS OR SOB. PATIENT COMPLAINED OF ITCHINESS WHICH IS COMMON FOR PATIENT. DR. GRACE AWARE OF PATIENT COMPLAIN OF ITCHY SKIN. ORDERS GIVEN BY DR. GRACE WHICH WILL BE CARRIED OUT. WILL CONTINUE TO MONITOR PATIENT.
[2020-01-12] MEDS ORDERED: diphenhdrAMINE HCL 25 MG CAP PO PRN (16:15)
--- NOTE | 2020-01-12 17:38 | NUR ---
BLOOD TRANSFUSION FINISHED AT 1738 WITH NO SIGNS OF DISTRESS OR SOB. NO REACTIONS NOTED. PATIENT TOLERATED BLOOD TRANSFUSION OF 1 UNIT OF PRBC'S. WILL CONTINUE TO MONITOR.
[2020-01-12] MEDS: RAMIPRIL 2.5 MG CAP PO SCH (18:26)
--- NOTE | 2020-01-12 19:30 | NUR ---
Opening Shift Note Assumed care of patient AA/Ox4. Respirations even and unlabored. No S/S of distress/SOB or pain. Tegaderm over gauze in Right groin region C/D/I and asymptomatic. Bed in lowest locked position, safety precautions in place and call light within reach. Instructed on POC and to call for assist PRN, will continue to monitor for changes Q1hr and PRN. Signed: 01/13/20 at 0411 by KORI BANEGAS <Co-Signature Required> Co-Signed: 01/13/20 at 0411 by BISHOP MENA RN RN
[2020-01-12] MEDS: ATORVASTATIN 20 MG TAB PO SCH (22:23)
[2020-01-13 05:00] VITALS: BP 91/46
[2020-01-13] MEDS: SODIUM CHLOR 0.9% PF (SALINE LOCK) 10ML VIAL/SYR IV SCH ×3 (05:42→22:01)
[2020-01-13] MEDS: CARVEDILOL 3.125 MG TAB PO SCH (06:21)
[2020-01-13] MEDS: ACCU-CHEK COMFORT CURVE STRIP VI SCH ×4 (06:32→22:01)
[2020-01-13] MEDS: InsuLIN REG 1unit/0.01ml Soln (100units/ml) SC SCH ×4 (06:32→22:06)
[2020-01-13 06:40] LABS: Basophils # (auto) 0 10 ^3/uL (0-0.2); Basophils % (auto) 0.8 % (0.0-2.0); Eosinophils # (auto) 0.2 10 ^3/uL (0-0.8); Eosinophils % (auto) 3.8 % (0.0-7.0); Hemoglobin 9.5 g/dL (13.5-17.5); Lymphocytes # (auto) 0.8 10 ^3/uL (0.4-5.4); Lymphocytes % (auto) 11.7 % (10.0-50.0); Mean Corpuscular Hemoglobin 33.6 pg (28.0-32.0); Mean Corpuscular Hgb Conc. 33.9 g/dL (32.0-36.0); Mean Corpuscular Volume 99.1 fL (80.0-100.0); Monocytes # (auto) 0.7 10 ^3/uL (0-1.3); Monocytes % (auto) 10.6 % (0.0-12.0); Neutrophils # (auto) 4.7 10 ^3/uL (1.6-8.6); Neutrophils % (auto) 73.1 % (37.0-80.0); Platelet Count (auto) 175 10^3/uL (140-450); Red Blood Cells 2.83 10^6/uL (4.5-5.90); Red Cell Distribution Width 17.3 % (11.8-14.3); White Blood Cell 6.5 10^3/uL (4.4-10.8)
[2020-01-13 06:54] LABS: INR 1.15 (0.9-1.15); Partial Thromboplastin Time 30.2 sec (23.0-31.2)
[2020-01-13 07:04] LABS: Potassium 3.5 mmol/L (3.5-5.1)
[2020-01-13 07:10] LABS: BUN/Creatinine Ratio 13.4; Calcium 8.1 mg/dL (8.5-10.1)
--- NOTE | 2020-01-13 07:40 | NUR ---
PATIENT OFF UNIT TO ROLL FILLER FOR PROCEDURE WITH DR. GRACE. PATIENT WAS TRANSPORTED IN [facility] WITH NO SIGNS OF DISTRESS. WILL AWAIT PATIENT RETURN.
[2020-01-13] MEDS ORDERED: SODIUM CHL 0.9% 50 ML ONE (08:06)
[2020-01-13] MEDS ORDERED: LIDOCAINE 2%HCL (LOCAL ANESTH.) INJ 20ML MDV ONE (08:06)
[2020-01-13] MEDS ORDERED: MIDAZOLAM HCL 1MG/1ML-2 ML VIAL ONE (08:06)
[2020-01-13] MEDS ORDERED: fentaNYL CITRATE 100 MCG/2 ML VL ONE (08:06)
[2020-01-13] MEDS ORDERED: ANGIOMAX 250 MG VIAL IV ONE (08:06)
[2020-01-13] MEDS ORDERED: IODIXANOL 320MG/ML 100ML BTL IV ONE (08:07)
[2020-01-13 08:55] VITALS: BP 117/66
[2020-01-13] MEDS ORDERED: CLOPIDOGREL BISULFATE 75 MG TAB ONE (09:40)
[2020-01-13] MEDS ORDERED: ASPirin 81 mg TAB ONE (09:41)
[2020-01-13] MEDS: ASPirin-EC 81 mg tab PO SCH (10:00)
[2020-01-13] MEDS ORDERED: PANTOPRAZOLE 40 MG TAB PO SCH (10:00)
[2020-01-13] MEDS: CLOPIDOGREL BISULFATE 75 MG TAB PO SCH (10:00)
--- NOTE | 2020-01-13 11:30 | NUR ---
PATIENT ARRIVED TO UNIT FROM TANK FARM OPERATOR WITH A ANGIOPLAST OF THE LEFT FEMORAL WITH ONE STENT PLACED AT THE CIRCUMFLEX ARTERY. PATIENT ANGIOPLAST PROTOCOL WILL BE FOLLOWED. LEFT FEMORAL WILL BE MONITORED FOR BLEEDING. PATIENT WILL BE ABLE TO SIT UP AT 1150 AM. WILL CONTINUE TO MONITOR PATIENT.
--- NOTE | 2020-01-13 11:50 | NUR ---
DRESSING ON LEFT FEMORAL HAD SANGUINEOUS DRAINAGE AT THE EDGED OF DRESSING. THE SANGUINEOUS DRAINAGE WAS OUTLINED AND WILL CONTINUE TO MONITOR.
[2020-01-13] MEDS: GABAPENTIN 100 MG CAP PO SCH ×2 (11:56→22:00)
--- NOTE | 2020-01-13 12:00 | NUR ---
SANGUINEOUS DRAINAGE WAS NOTED ON ALL DRESSING, DRESSING REMOVED, THE INCISION DID NOT HAVE ACTIVE BLEEDING OR BLOOD POOLING. DRESSING WAS REINFORCED WITH 4X4 GAUZE PADS AND TEGADERM. WILL CONTINUE TO MONITOR.
--- NOTE | 2020-01-13 12:20 | NUR ---
DRESSING ON LEFT FEMORAL IS CLEAN, DRY AND INTACT. PATIENT IS ABLE TO SIT UP IN BED WITH NO SIGNS OF DRAINAGE IN DRESSING. WILL CONTINUE TO MONITOR.
[2020-01-13] MEDS: IRON SUCROSE COMPLEX 200 MG in SODIUM CHL 0.9% 100 ML IV SCH (14:32)
--- NOTE | 2020-01-13 15:10 | NUR ---
Nutrition Followup Note Pt wt is 92.5 kg Pt was sleeping with no relatives at bedside when rounded this morning. Pt is with a CCHO 60g diet, appetite is good aeb 75% PO intake x3 meals per RN doc. Will continue to monitor PO status, skin status, pertinent labs and weight trends. Will f/u in 3-5 days. Recommendation: Consider a Renal Standard/CCHO 60g diet Est energy needs BW 91 [id number] kcal (30-33kcal/kg BW), Est protein 109-127g (1.2-1.4 g/kg BW r/t HD). Will reassess prn. LABS: BUN 65 H, Cr 4.85 H, GFR 13 L, Gluc 125 H, Ca 8.1 L GI: Pt had 2 BM on 01/11 per RN doc BS: 18 mod risk. Refer to wound assessment report for full details. PES: Altered nutrition related lab values r.t current chronic medical condition aeb elev RFT A1C, mod hypoalb hyperglycemia Comments 1) refer to CDE on DC 2) consider prostat 1 packet bid if alb trends dwn 3) continue current plan of care
--- NOTE | 2020-01-13 16:16 | NUR ---
Assessment Patient is a 64-year-old male who is alert and oriented. Prior to admission patient lived home with his [place] . Patient informed me he can care for his own ADLs. Patient informed me he does not have any other medical equipment at home now. Per patient he will return to his prior living arrangements post discharge and his will transport him home. Advised patient there is a social service consult for a walker and home health service for blood pressure. Informed patient clinical information will be faxed to [email or web address] for the walker and [facility]. Informed patient he has the right to participate in all discharge planning. Patient verbalized understanding and agreed to discharge plan home. Faxed clinical information to [facility], [facility] and [facility]. Per Alie with [facility] patient has been accepted and they will see patient within 24-48hrs upon d/c day. Per Renetta with [email or web address] [place] they will deliver walker to bedside tonight between 16:00-19:00. Addendum: 01/13/20 at 1622 by ROSALEE SEGURA Amended: Links added.
[2020-01-13 17:00] VITALS: BP 127/66
[2020-01-13] MEDS: RAMIPRIL 2.5 MG CAP PO SCH (17:43)
[2020-01-13 22:00] VITALS: BP 115/61
[2020-01-13] MEDS: ATORVASTATIN 20 MG TAB PO SCH (22:00)
[2020-01-13] MEDS: PANTOPRAZOLE 40 MG TAB PO SCH (22:01)
[2020-01-14] VITALS (8 sets, daily range): BP systolic 111–127; BP diastolic 60–82
[2020-01-14] MEDS: SODIUM CHLOR 0.9% PF (SALINE LOCK) 10ML VIAL/SYR IV SCH ×2 (06:37→14:00)
[2020-01-14] MEDS: ACCU-CHEK COMFORT CURVE STRIP VI SCH ×3 (06:37→17:00)
[2020-01-14] MEDS: CARVEDILOL 3.125 MG TAB PO SCH (06:37)
[2020-01-14] MEDS: InsuLIN REG 1unit/0.01ml Soln (100units/ml) SC SCH ×3 (06:38→18:08)
[2020-01-14 06:39] LABS: Basophils # (auto) 0.1 10 ^3/uL (0-0.2); Basophils % (auto) 0.9 % (0.0-2.0); Eosinophils # (auto) 0.2 10 ^3/uL (0-0.8); Hematocrit 25.9 % (41.0-53.0); Hemoglobin 8.9 g/dL (13.5-17.5); Lymphocytes # (auto) 0.6 10 ^3/uL (0.4-5.4); Lymphocytes % (auto) 8.6 % (10.0-50.0); Mean Corpuscular Hgb Conc. 34.2 g/dL (32.0-36.0); Mean Corpuscular Volume 99.3 fL (80.0-100.0); Monocytes # (auto) 0.7 10 ^3/uL (0-1.3); Monocytes % (auto) 9.7 % (0.0-12.0); Neutrophils # (auto) 5.6 10 ^3/uL (1.6-8.6); Neutrophils % (auto) 77.8 % (37.0-80.0); Nucleated Red Blood Cells % 0.2 %; Platelet Count (auto) 174 10^3/uL (140-450); Red Blood Cells 2.61 10^6/uL (4.5-5.90); Red Cell Distribution Width 18.3 % (11.8-14.3); White Blood Cell 7.2 10^3/uL (4.4-10.8)
[2020-01-14] MEDS ORDERED: SODIUM CHL 0.9% 1000 ML BAG XX ONE (07:00)
[2020-01-14 07:03] LABS: Calcium 8.3 mg/dL (8.5-10.1); Potassium 3.7 mmol/L (3.5-5.1)
[2020-01-14 07:05] LABS: BUN/Creatinine Ratio 15.5
--- NOTE | 2020-01-14 07:50 | NUR ---
CRITICAL LAB VALUE PHONE CALL RECEIVED FROM LAB FOR A CRITICAL LAB VALUE FOR BUN OF 81 H. PATIENT LAB VALUE 01/13/20 FOR BUN 65 H. PAGED WAS MADE FOR DR. TOWNSEND IN ORDER TO GET POC. WILL AWAIT NEW ORDERS.
--- NOTE | 2020-01-14 08:36 | NUR ---
DR. TOWNSEND PHONE CALL RECEIVED FROM DR. TOWNSEND REGARDING CRITICAL LAB VALUE. PATIENT IS SCHEDULED FOR DIALYSIS WHICH WILL ADDRESS HIGH BUN VALUE OF 81. DR. TOWNSEND ORDERED ONE UNIT OF PRBC'S FOR HEMOGLOBIN OF LEVEL 8.9. WILL CARRY OUT ORDERS.
[2020-01-14] MEDS ORDERED: LACTULOSE 20Gm/30ML SOLN PO PRN (09:30)
--- NOTE | 2020-01-14 14:00 | NUR ---
1 UNIT OF PRBC'S WAS TRANSFUSED VIA DIALYSIS. THE TRANSFUSION WAS INITIATED AT 1326 PM AND ENDED AT 1400 PM. THE PATIENT TOLERATED TRANSFUSION WITHOUT ANY ADVERSE REACTIONS. WILL CONTINUE TO MONITOR THE PATIENT.
[2020-01-14] MEDS: IRON SUCROSE COMPLEX 200 MG in SODIUM CHL 0.9% 100 ML IV SCH (16:00)
[2020-01-14] MEDS: CLOPIDOGREL BISULFATE 75 MG TAB PO SCH (17:34)
[2020-01-14] MEDS: ASPirin-EC 81 mg tab PO SCH (17:34)
[2020-01-14] MEDS: GABAPENTIN 100 MG CAP PO SCH (17:34)
[2020-01-14] MEDS: PANTOPRAZOLE 40 MG TAB PO SCH (17:34)
[2020-01-14] MEDS: RAMIPRIL 2.5 MG CAP PO SCH (18:09)
[2020-01-14] MEDS ORDERED: EPOETIN ALFA 10,000 UNIT/1 ML VIAL SC ONE (21:00)
== END 2020-01-14 18:31 | disposition home health service (06) | DRG 246 ==
LOC: EDUNIT# 09:07 → EDBD 09:07 → ER 09:07 → TELE 09:08 → TELE-WESTW 18:05
PROVIDERS: ADMIT Internal Medicine; ATTEND Hospitalist
PROC: 027034Z Dilation of Coronary Artery, One Artery with Drug-eluting Intraluminal Device, Percutaneous Approach (ICD-10-PCS; principal; 2020-01-07)
PROC: 02703ZZ Dilation of Coronary Artery, One Artery, Percutaneous Approach (ICD-10-PCS; 2020-01-07)
PROC: B211YZZ Fluoroscopy of Multiple Coronary Arteries using Other Contrast (ICD-10-PCS; 2020-01-07)
PROC: B41GYZZ Fluoroscopy of Left Lower Extremity Arteries using Other Contrast (ICD-10-PCS; 2020-01-07)
PROC: 30233N1 Transfusion of Nonautologous Red Blood Cells into Peripheral Vein, Percutaneous Approach (ICD-10-PCS; 2020-01-07)
PROC: 5A1D70Z Performance of Urinary Filtration, Intermittent, Less than 6 Hours Per Day (ICD-10-PCS; 2020-01-09)
PROC: 5A1D70Z Performance of Urinary Filtration, Intermittent, Less than 6 Hours Per Day (ICD-10-PCS; 2020-01-11)
PROC: 027034Z Dilation of Coronary Artery, One Artery with Drug-eluting Intraluminal Device, Percutaneous Approach (ICD-10-PCS; 2020-01-13)
PROC: 02703ZZ Dilation of Coronary Artery, One Artery, Percutaneous Approach (ICD-10-PCS; 2020-01-13)
PROC: 02C13ZZ Extirpation of Matter from Coronary Artery, Two Arteries, Percutaneous Approach (ICD-10-PCS; 2020-01-13)
PROC: B210YZZ Fluoroscopy of Single Coronary Artery using Other Contrast (ICD-10-PCS; 2020-01-13)
PROC: B241ZZ3 Ultrasonography of Multiple Coronary Arteries, Intravascular (ICD-10-PCS; 2020-01-13)
PROC: B41GYZZ Fluoroscopy of Left Lower Extremity Arteries using Other Contrast (ICD-10-PCS; 2020-01-13)
PROC: 5A1D70Z Performance of Urinary Filtration, Intermittent, Less than 6 Hours Per Day (ICD-10-PCS; 2020-01-14)
DX: I21.3 ST elevation (STEMI) myocardial infarction of unspecified site (principal); N18.6 End stage renal disease; E87.2 Acidosis; I12.0 Hypertensive chronic kidney disease with stage 5 chronic kidney disease or end stage renal disease; C90.00 Multiple myeloma not having achieved remission; E11.65 Type 2 diabetes mellitus with hyperglycemia; I34.0 Nonrheumatic mitral (valve) insufficiency; R19.7 Diarrhea, unspecified; Z20.828 Contact with and (suspected) exposure to other viral communicable diseases; D63.1 Anemia in chronic kidney disease; E11.22 Type 2 diabetes mellitus with diabetic chronic kidney disease; I25.10 Atherosclerotic heart disease of native coronary artery without angina pectoris; Z79.82 Long term (current) use of aspirin; Z99.2 Dependence on renal dialysis; Z85.05 Personal history of malignant neoplasm of liver; Z95.5 Presence of coronary angioplasty implant and graft
CPT/HCPCS: 36415; 70450; 71045; 74176; 75710; 80048; 80053; 82962; 83036; 83605; 83735; 84484; 85014; 85018; 85025; 85379; 85610; 85730; 86850; 86900; 86901; 86920; 87040; 87070; 87804; 87880; 90935; 92920; 92924; 92928; 92933; 92978; 92979; 93005; 93306; 93454; 99152; 99153; 99291; C1725; C1874; G0378; J0885; J1756; J1815; J2250; J2405; Q9967

== ENCOUNTER 2020-02-05 14:11 | Inpatient (IN) | payer BC ==
[~2020-02-05] VITALS: Ht 182.9 cm; Wt 96.9 kg
[~2020-02-05 14:11] MED LIST changes: +ASPI-394 PO; +ATOR20TA50 PO; -B-CO1TAB24 PO; +B-COTAB10 PO; +CAR3125T PO; +CLOP75TA41 PO; +GAB100C PO; +INSLANTI SC; -SITA50TA PO; +[UNRECOGNIZED DRUG - CODE] PO
[2020-02-05 16:19] LABS: Eosinophils % (auto) 1.8 % (0.0-7.0); White Blood Cell 5.1 10^3/uL (4.4-10.8)
[2020-02-05 16:20] LABS: Eosinophils # (auto) 0.1 10 ^3/uL (0-0.8); Lymphocytes # (auto) 0.6 10 ^3/uL (0.4-5.4); Monocytes # (auto) 0.3 10 ^3/uL (0-1.3); Platelet Count (auto) 134 10^3/uL (140-450); Red Blood Cells 1.27 10^6/uL (4.5-5.90)
[2020-02-05 16:21] LABS: Basophils # (auto) 0.1 10 ^3/uL (0-0.2); Basophils % (auto) 1.2 % (0.0-2.0); Hematocrit 13.7 % (41.0-53.0); Mean Corpuscular Hemoglobin 34.3 pg (28.0-32.0); Mean Corpuscular Hgb Conc. 31.8 g/dL (32.0-36.0); Mean Corpuscular Volume 107.8 fL (80.0-100.0); Monocytes % (auto) 6.7 % (0.0-12.0); Neutrophils % (auto) 78.3 % (37.0-80.0); Nucleated Red Blood Cells % 0.1 %
[2020-02-05 16:23] LABS: Red Cell Distribution Width 20.1 % (11.8-14.3)
[2020-02-05 16:26] LABS: Hemoglobin 4.4 g/dL (13.5-17.5)
[2020-02-05 16:39] LABS: Albumin 2.3 g/dL (3.4-5.0); BUN/Creatinine Ratio 11.5; Calcium 7.9 mg/dL (8.5-10.1); Magnesium 1.6 mg/dL (1.6-2.6); Potassium 4.4 mmol/L (3.5-5.1)
[2020-02-05 16:44] LABS: Bilirubin, Total 0.4 mg/dL (0.2-1.0); Total Protein 5.6 g/dL (6.4-8.2)
[2020-02-05] MEDS ORDERED: PANTOPRAZOLE 40 MG/10 ML VIAL INJ IV ONE (16:45)
[2020-02-05] MEDS ORDERED: ACETAMINOPHEN 325 MG TAB PO PRN (17:00)
[2020-02-05] MEDS ORDERED: ALUM & MAG HYDROX-SIMETH LIQ(MAALOX) 30 ML PO PRN (17:00)
[2020-02-05] MEDS ORDERED: MORPHINE SULF INJ 2 MG/ML SYRINGE 1ML IV PRN (17:00)
[2020-02-05] MEDS ORDERED: DOCUSATE SOD 100 MG CAP PO PRN (17:00)
[2020-02-05] MEDS ORDERED: LORazepam 0.5 MG TAB PO PRN (17:00)
[2020-02-05] MEDS ORDERED: ONDANSETRON HCL 4 MG/2 ML VIAL IV PRN (17:00)
[2020-02-05] MEDS ORDERED: NITROGLYCERIN 0.4 MG SL TAB SL PRN (17:00)
[2020-02-05] MEDS ORDERED: MAGNESIUM SULFATE 1GM/100ML 100 ML IV ONE (17:15)
[2020-02-05 17:34] LABS: INR 1.07 (0.9-1.15); Partial Thromboplastin Time 20.5 sec (23.0-31.2)
[2020-02-05] MEDS ORDERED: B-COTAB10 PO (17:40)
[2020-02-05] MEDS ORDERED: ASPI-498 PO (17:40)
[2020-02-05] MEDS ORDERED: ATOR40TA52 PO (17:41)
[2020-02-05] MEDS ORDERED: INSU100I4 SC (17:42)
[2020-02-05] MEDS ORDERED: ACET-1304 PO (19:04)
[2020-02-05 19:10] LABS: Cholesterol 85 mg/dL (< 200)
[2020-02-05 19:13] LABS: HDL Cholesterol 30 mg/dL (40-59); LDL Cholesterol 42 mg/dL (< 100); Triglycerides 97 mg/dL (< 150)
[2020-02-05 20:23] VITALS: BP 95/55
[2020-02-05 20:39] VITALS: BP 95/56
[2020-02-05 21:53] VITALS: BP 102/57
[2020-02-05 22:00] VITALS: BP 102/57
--- NOTE | 2020-02-05 22:00 | NUR ---
MS admit from ER CARIDAD CHAIDEZ admitted to tele/MS after SBAR received. Patient oriented to [facility] VI[facility], room 208. Patient weighed by bedscale and encouraged to call if they need something. All questions and concerns addressed, patient verbalized understanding. Pt receiving PRBC, 1 of 2, on arrival. Pt is on 2L NC with even and unlabored respirations. Bed locked, in lowest position, call light within reach, side rails up x2. Will continue to monitor Q1hr and PRN.
[2020-02-05 23:05] VITALS: BP 90/48
[2020-02-05 23:41] LABS: Platelet Count (auto) 136 10^3/uL (140-450)
[2020-02-06] VITALS (23 sets, daily range): BP systolic 80–117; BP diastolic 37–70
--- NOTE | 2020-02-06 00:07 | NUR ---
Paged Hospitalist Pt reports that he is a diabetic and takes insulin at home. Accu-checks not ordered for this pt with sliding scale
[2020-02-06] MEDS ORDERED: DEXTROSE (50%) 50ML SYRG IV PRN ×2 (00:30→07:15)
[2020-02-06] MEDS: PANTOPRAZOLE 40 MG/10 ML VIAL INJ IV SCH ×3 (00:54→22:26)
--- NOTE | 2020-02-06 00:54 | NUR ---
Call back from hospitalist New orders received.
[2020-02-06] MEDS: HYDROcodone-ACET 5/325MG TAB PO PRN (06:57)
[2020-02-06] MEDS ORDERED: ACCU-CHEK COMFORT CURVE STRIP VI SCH (07:00)
[2020-02-06] MEDS ORDERED: InsuLIN REG 1unit/0.01ml Soln (100units/ml) SC SCH (07:00)
[2020-02-06] MEDS ORDERED: LEVOTHYROXINE SODIUM 50 MCG TAB PO ONE (07:15)
[2020-02-06] MEDS: FERROUS SULFATE 325 MG TAB PO SCH ×3 (07:44→18:45)
[2020-02-06 08:29] LABS: Basophils # (auto) 0.1 10 ^3/uL (0-0.2); Eosinophils # (auto) 0.1 10 ^3/uL (0-0.8); Lymphocytes # (auto) 0.6 10 ^3/uL (0.4-5.4); Monocytes # (auto) 0.4 10 ^3/uL (0-1.3)
[2020-02-06 08:30] LABS: Basophils % (auto) 1.2 % (0.0-2.0); Eosinophils % (auto) 1.6 % (0.0-7.0); Lymphocytes % (auto) 10.6 % (10.0-50.0); Mean Corpuscular Hemoglobin 33.4 pg (28.0-32.0); Mean Corpuscular Hgb Conc. 33.3 g/dL (32.0-36.0); Mean Corpuscular Volume 100.5 fL (80.0-100.0); Monocytes % (auto) 6.9 % (0.0-12.0); Neutrophils # (auto) 4.4 10 ^3/uL (1.6-8.6); Neutrophils % (auto) 79.7 % (37.0-80.0); Platelet Count (auto) 133 10^3/uL (140-450); Red Blood Cells 1.49 10^6/uL (4.5-5.90); White Blood Cell 5.5 10^3/uL (4.4-10.8)
--- NOTE | 2020-02-06 08:35 | NUR ---
PAGED DR LONG TO REPORT CRITICAL VALUE OF HgB 5.0. WAITING FOR RETURN CALL.
[2020-02-06 08:37] LABS: Red Cell Distribution Width 21.4 % (11.8-14.3)
[2020-02-06 08:42] LABS: INR 1.09 (0.9-1.15)
[2020-02-06] MEDS: MAGNESIUM OXIDE 400 MG TAB PO SCH ×2 (09:10→22:26)
--- NOTE | 2020-02-06 10:00 | NUR ---
Dr. sanchez paged again for critical HbG of 5.0. waiting for orders
--- NOTE | 2020-02-06 10:30 | NUR ---
PAGEOfe RAMOS FOR CRITICAL LAB VALUES
[2020-02-06] MEDS: ACCU-CHEK COMFORT CURVE STRIP VI SCH ×3 (11:45→22:00)
[2020-02-06] MEDS: InsuLIN REG 1unit/0.01ml Soln (100units/ml) SC SCH ×3 (11:51→22:00)
[2020-02-06 13:01] LABS: Urine WBC None Seen /hpf (0 - 3)
[2020-02-06 13:31] LABS: Amphetamine Screen, Urine NEGATIVE (NEGATIVE); Barbiturate Scree,Urine NEGATIVE (NEGATIVE); Benzodiazephine Screen, Urine NEGATIVE (NEGATIVE); Cannabinoid Screen, Urine NEGATIVE (NEGATIVE); Cocaine Screen, Urine NEGATIVE (NEGATIVE); Opiate Scree,Urine NEGATIVE (NEGATIVE); Phencyclidine Screen, Urine NEGATIVE (NEGATIVE)
[2020-02-06 13:33] LABS: Urine Bacteria NONE SEEN /hpf (None Seen); Urine Blood TRACE /uL (Negative); Urine Specific Gravity 1.021 (1.001-1.035)
[2020-02-06 13:38] LABS: Alcohol, Urine < 3.0 mg/dL (0-10)
[2020-02-06] MEDS: GABAPENTIN 100 MG CAP PO SCH ×3 (13:47→22:26)
[2020-02-06] MEDS ORDERED: FUROSEMIDE 20 MG/2 ML VIAL IV SCH (18:00)
--- NOTE | 2020-02-06 19:05 | NUR ---
PATIENT IS RECEIVED IN ICU VIA W/C, CONNECTED TO ACCOUNTS RECEIVABLE ASSOCIATE , ASSESSED, ORDERS REVIEWED. PT IS IN NO ACUTE DISTRESS, DENIES ANY PAIN OR SOB, INITIAL VS STABLE. ONE MORE UNIT OF PRBCS STILL TO BE TRANSFUSED.
--- NOTE | 2020-02-06 20:17 | NUR ---
PT RECEIVED 3 UNITS OF PRBC, LAST ON IS NOW AVAILABLE AND STARTED, VSS.
[2020-02-06] MEDS ORDERED: methylPREDNISolone SOD SUCC 125 MG/2 ML VL IV SCH (22:00)
[2020-02-06] MEDS ORDERED: POTASSIUM CHL 20 Meq TABLET PO SCH (22:00)
[2020-02-06] MEDS: ATORVASTATIN 20 MG TAB PO SCH (22:26)
[2020-02-07] VITALS (23 sets, daily range): BP systolic 96–131; BP diastolic 48–69
[2020-02-07 04:21] LABS: Basophils # (auto) 0 10 ^3/uL (0-0.2); Basophils % (auto) 0.6 % (0.0-2.0); Eosinophils # (auto) 0 10 ^3/uL (0-0.8); Eosinophils % (auto) 0.6 % (0.0-7.0); Hemoglobin 7.2 g/dL (13.5-17.5); Mean Corpuscular Hgb Conc. 34.2 g/dL (32.0-36.0); Monocytes # (auto) 0.1 10 ^3/uL (0-1.3); Neutrophils # (auto) 5.2 10 ^3/uL (1.6-8.6); Red Blood Cells 2.15 10^6/uL (4.5-5.90)
[2020-02-07 04:24] LABS: Lymphocytes # (auto) 0.3 10 ^3/uL (0.4-5.4); Lymphocytes % (auto) 6.1 % (10.0-50.0); Mean Corpuscular Hemoglobin 33.5 pg (28.0-32.0); Mean Corpuscular Volume 97.8 fL (80.0-100.0); Monocytes % (auto) 1.3 % (0.0-12.0); Neutrophils % (auto) 91.4 % (37.0-80.0); Platelet Count (auto) 133 10^3/uL (140-450); White Blood Cell 5.6 10^3/uL (4.4-10.8)
[2020-02-07 04:32] LABS: Red Cell Distribution Width 20.1 % (11.8-14.3)
[2020-02-07 04:40] LABS: Calcium 8.4 mg/dL (8.5-10.1); Potassium 4.9 mmol/L (3.5-5.1)
[2020-02-07 04:42] LABS: BUN/Creatinine Ratio 17.2
[2020-02-07] MEDS: InsuLIN REG 1unit/0.01ml Soln (100units/ml) SC SCH ×4 (06:09→21:38)
[2020-02-07] MEDS: ACCU-CHEK COMFORT CURVE STRIP VI SCH ×4 (06:18→21:31)
[2020-02-07] MEDS: LEVOTHYROXINE SODIUM 50 MCG TAB PO SCH (06:36)
[2020-02-07] MEDS ORDERED: SODIUM CHL 0.9% 1000 ML BAG XX ONE (07:00)
[2020-02-07] MEDS: FERROUS SULFATE 325 MG TAB PO SCH ×3 (08:00→17:47)
--- NOTE | 2020-02-07 08:00 | NUR ---
Morning medications held as dialysis is pending. Patient notified and agrees.
--- NOTE | 2020-02-07 09:00 | NUR ---
Nutrition Patient ate 100% of breakfast tray with no complains of N/V or abd. pain. Addendum: 02/07/20 at 1140 by Day Schaeffer RN Patient sat at edge of bed during meal. VSS. No complains of dizziness.
--- NOTE | 2020-02-07 09:30 | NUR ---
GI CONSULT DR. GRULLON AT BEDSIDE. MD UPDATED PATIENT ON CURRENT STATUS. DISCUSSION OF RISKS AND BENEFITS OF PROCEDURES EXPLAINED. QUESTIONS AND CONCERNS ADDRESSED. PROCEDURE PENDING FOR MONDAY APPROX 1200.
[2020-02-07] MEDS: MAGNESIUM OXIDE 400 MG TAB PO SCH ×2 (10:00→21:30)
[2020-02-07] MEDS: PANTOPRAZOLE 40 MG/10 ML VIAL INJ IV SCH ×2 (10:00→21:30)
--- NOTE | 2020-02-07 13:00 | NUR ---
DIET PATIENT TOLERATED 100% OF DINNER TRAY. DENIES ANY N/V/ ABD PAIN.
--- NOTE | 2020-02-07 13:45 | NUR ---
DIALYSIS NURSE AT BEDSIDE.
[2020-02-07] MEDS: methylPREDNISolone SOD SUCC 125 MG/2 ML VL IV SCH ×2 (14:00→21:30)
[2020-02-07] MEDS: GABAPENTIN 100 MG CAP PO SCH ×2 (14:00→21:31)
--- NOTE | 2020-02-07 16:00 | NUR ---
HANDY HOLDER AWARE OF BMP. OK TO GIVE PO KCL. NEW ORDER FOR PRN IN PLACE. Addendum: 02/07/20 at 1750 by Day Schaeffer RN WRONG ENTRY
--- NOTE | 2020-02-07 16:00 | NUR ---
REAPID IN HOUSE COVID NOT AVAILABLE. MADYSON ANTIGEN SENT.
--- NOTE | 2020-02-07 16:20 | NUR ---
MD rounds Dr. Caal updated on patients status. See md order. Per md if hgb does not drop from 7.2, ok for patient to be downgraded to [place].
[2020-02-07] MEDS: B-COMPLEX W/ C & FOLIC ACID(NEPHROVITE TAB) PO SCH (17:46)
[2020-02-07] MEDS: HYDROcodone-ACET 5/325MG TAB PO PRN (17:47)
[2020-02-07 19:11] LABS: Hematocrit 29.7 % (41.0-53.0); Hemoglobin 10.1 g/dL (13.5-17.5)
[2020-02-07] MEDS ORDERED: EPOETIN ALFA 4,000 UNIT/ML VL SC ONE (21:00)
[2020-02-07] MEDS: ATORVASTATIN 20 MG TAB PO SCH (21:30)
--- NOTE | 2020-02-07 23:55 | NUR ---
at bedside Dr. Constantino Bryant at bedside, updated on pt's status and discussed POC, v.o made
[2020-02-08] VITALS (29 sets, daily range): BP systolic 97–125; BP diastolic 49–77
--- NOTE | 2020-02-08 05:00 | NUR ---
Morning care done
[2020-02-08 05:28] LABS: Potassium 4.6 mmol/L (3.5-5.1)
[2020-02-08 05:33] LABS: Calcium 7.9 mg/dL (8.5-10.1)
[2020-02-08] MEDS: ACCU-CHEK COMFORT CURVE STRIP VI SCH ×4 (06:05→21:38)
[2020-02-08] MEDS: GABAPENTIN 100 MG CAP PO SCH ×3 (06:05→21:38)
[2020-02-08] MEDS: LEVOTHYROXINE SODIUM 50 MCG TAB PO SCH (06:05)
[2020-02-08] MEDS: InsuLIN REG 1unit/0.01ml Soln (100units/ml) SC SCH ×4 (06:12→21:41)
--- NOTE | 2020-02-08 07:10 | NUR ---
Assumed care of pt., report received per LIONEL Eng. No distress noted, pt. attached to monitor and reading sinus rhythm /s ectopy, VSS, will cont.to monitor for any changes, call noguera in reach, assessment ongoing.
[2020-02-08] MEDS: FERROUS SULFATE 325 MG TAB PO SCH ×3 (08:54→17:18)
[2020-02-08] MEDS ORDERED: GOLYTELY 4L KIT PO ONE (12:00)
--- NOTE | 2020-02-08 12:00 | NUR ---
Spoke to Dr. Destin Bryant about restarting plavix or heparin gtt, Dr. Beard denies need for heparin gtt and ask that I consult /c Dr. Archuleta prior to restarting Plavix, Dr. Archuleta was not on today, Dr. Gomez Schilling was on for Dr. Archuleta, Dr. Schilling doesn't want plavix restarted until /p EGD tomorrow. Will cont.to monitor for any changes, assessment is ongoing.
[2020-02-08] MEDS: PANTOPRAZOLE 40 MG/10 ML VIAL INJ IV SCH ×2 (12:35→21:35)
[2020-02-08] MEDS: MAGNESIUM OXIDE 400 MG TAB PO SCH ×2 (12:35→21:37)
[2020-02-08] MEDS: methylPREDNISolone SOD SUCC 125 MG/2 ML VL IV SCH ×2 (12:35→21:37)
[2020-02-08 13:04] LABS: Hemoglobin 7.4 g/dL (13.5-17.5)
--- NOTE | 2020-02-08 19:27 | NUR ---
No distress noted, pt. report given to LIONEL Alfaro. Care of pt assumed per NOC shift RN, Day shift RN relinquished care and signed off.
--- NOTE | 2020-02-08 21:00 | NUR ---
MEDICATED FOR BACK PAIN PT REPORTS CHRONIC BACK PAIN. REPOSITIONING AND ICE PACKS PROVIDE MINIMUM PAIN RELIEF. PT REQUESTING PAIN MEDICATION.
[2020-02-08] MEDS: MORPHINE SULF INJ 2 MG/ML SYRINGE 1ML IV PRN (21:19)
[2020-02-08] MEDS: ATORVASTATIN 20 MG TAB PO SCH (21:37)
--- NOTE | 2020-02-08 23:20 | NUR ---
LIQUID BLACK STOOLS PT HAD 4 LIQUID BLACK STOOL SINCE THE BEGINNING OF THE SHIFT. I KEEP ON ENCOURAGING TO DRINK GOLYTELY FOR TOMORROWS PROCEDURE. PT IS ABLE ON HIS OWN TO GO TO BATHROOM AND BACK INTO BED. PROVIDED PARTIAL BED LINEN CHANGE AND PERINEAL CARE.
[2020-02-09] VITALS (46 sets, daily range): BP systolic 90–136; BP diastolic 48–82
[2020-02-09 01:03] LABS: Hemoglobin 10.6 g/dL (13.5-17.5)
[2020-02-09] MEDS ORDERED: GOLYTELY 4L KIT PO ONE (04:00)
--- NOTE | 2020-02-09 04:00 | NUR ---
PATIENT REFUSING GOLYTELY PT STATES "I CAN'T DRINK THIS ANYMORE" PT WAS EDUCATED ON THE PURPOSE OF GOLYTELY, PT VERBALIZED UNDERSTANDING, STATES THAT HIS STOOL IS CLEAR. WILL CONTINUE TO EDUCATE AND ENCOURAGE CARIDAD TO FINISH GOLYTELY.
[2020-02-09 04:28] LABS: Hematocrit 28.2 % (41.0-53.0); Hemoglobin 9.6 g/dL (13.5-17.5)
[2020-02-09 04:43] LABS: Calcium 8.5 mg/dL (8.5-10.1); Potassium 4.5 mmol/L (3.5-5.1)
[2020-02-09 04:46] LABS: BUN/Creatinine Ratio 15.7
[2020-02-09] MEDS: GABAPENTIN 100 MG CAP PO SCH ×3 (05:33→21:00)
[2020-02-09] MEDS: LEVOTHYROXINE SODIUM 50 MCG TAB PO SCH (06:00)
--- NOTE | 2020-02-09 06:00 | NUR ---
HOLDING PO MEDICATIONS FOR AM PROCEDURE
[2020-02-09] MEDS: ACCU-CHEK COMFORT CURVE STRIP VI SCH ×3 (06:01→21:13)
[2020-02-09] MEDS: InsuLIN REG 1unit/0.01ml Soln (100units/ml) SC SCH ×4 (06:08→21:06)
--- NOTE | 2020-02-09 07:20 | NUR ---
Assumed care of pt, report received per LIONEL Alfaro. No distress noted, pt. awake in bed, reading sinus rhythm on monitor, will cont.to monitor for any changes, call noguera in reach, assessment ongoing.
[2020-02-09] MEDS: FERROUS SULFATE 325 MG TAB PO SCH ×3 (07:55→18:00)
--- NOTE | 2020-02-09 07:55 | NUR ---
pt. Iron tab. held d/t NPO and am procedure. will cont.to monitor for any changes, call noguera in reach, assessment ongoing.
[2020-02-09] MEDS: MAGNESIUM OXIDE 400 MG TAB PO SCH ×2 (10:35→21:00)
[2020-02-09] MEDS: PANTOPRAZOLE 40 MG/10 ML VIAL INJ IV SCH (10:42)
[2020-02-09] MEDS: methylPREDNISolone SOD SUCC 125 MG/2 ML VL IV SCH ×2 (10:43→21:01)
[2020-02-09] MEDS ORDERED: NALOXONE HCL 0.4 MG/ML VIAL ONE (10:58)
[2020-02-09] MEDS ORDERED: SODIUM CHLORIDE LOCK 10 ML ONE (10:58)
[2020-02-09] MEDS ORDERED: FLUMAZENIL 0.1 MG/ML INJ 10ML MDV IV ONE (10:58)
[2020-02-09] MEDS ORDERED: MIDAZOLAM HCL 5 MG/ML-1ML VIAL ONE (10:58)
[2020-02-09] MEDS ORDERED: LIDOCAINE VISCOUS 2% 15ML UD ONE (10:58)
[2020-02-09] MEDS ORDERED: diphenhdrAMINE HCL 50 MG/1 ML VL ONE (10:59)
[2020-02-09] MEDS ORDERED: fentaNYL CITRATE 100 MCG/2 ML VL ONE (10:59)
[2020-02-09 12:58] LABS: Hematocrit 31.4 % (41.0-53.0); Hemoglobin 10.4 g/dL (13.5-17.5)
--- NOTE | 2020-02-09 15:20 | NUR ---
Nutrition Assessment Notes Please refer to link for full assessment notes. Est Energy needs: 8060-5667 kcals (23-25 kcal/kgBW) Est Protein needs: 106-116 gms/day (1.1-1.2 gm/kgBW) Will continue to monitor and reassess prn. Addendum: 02/09/20 at [address] Amended: Links added.
[2020-02-09 18:26] LABS: Hematocrit 29.6 % (41.0-53.0); Hemoglobin 9.7 g/dL (13.5-17.5)
--- NOTE | 2020-02-09 19:03 | NUR ---
No distress noted, pt. report given to LIONEL Chavarria. Care of pt. assumed per overnight stocker RN, day shift RN relinquished care and signed off.
--- NOTE | 2020-02-09 19:05 | NUR ---
OPENING NOTE RECEIVED REPORT FROM DAYSOTISFT RN AND ASSUMED CARE OF PT. PT IS EATING DINNER INDEPENDENTLY IN BED WITH ASPIRATION PRECAUTIONS IN PLACE. PT IS A0X4 WITH NO S/S OF DISTRESS OR PAIN WHEN ASKED, VSS. INSTRUCTED PT ON CURRENT PLAN OF CARE, UNIT, CALL LIU, AND FALL PRECAUTIONS. PT VERBALIZED UNDERSTANDING. WILL CONTINUE TO MONITOR AND REASSESS PT.
--- NOTE | 2020-02-09 21:00 | NUR ---
2200 MEDICATIONS GIVEN EARLY PER PT REQUEST. WISHES TO PROMOTE REST THIS EVENING.
[2020-02-09] MEDS: ATORVASTATIN 20 MG TAB PO SCH (21:01)
--- NOTE | 2020-02-09 23:48 | NUR ---
COOLING MEASURES INITIATED FOR ORAL TEMP OF 100.0. ICE PACKS APPLIED AND COOL CLOTH TO FOREHEAD. Addendum: 02/10/20 at 0103 by FLORENCIO ANDRES RN WRONG PATIENT.
[2020-02-10] VITALS (41 sets, daily range): BP systolic 103–150; BP diastolic 60–80
--- NOTE | 2020-02-10 00:18 | NUR ---
PT REFUSED MELINA CHANGE AND BATH AT THIS TIME.
[2020-02-10 00:44] LABS: Hematocrit 28.7 % (41.0-53.0); Hemoglobin 9.3 g/dL (13.5-17.5)
[2020-02-10] MEDS: HYDROcodone-ACET 5/325MG TAB PO PRN ×2 (04:29→19:58)
[2020-02-10 04:44] LABS: Hematocrit 33.3 % (41.0-53.0); Hemoglobin 10.7 g/dL (13.5-17.5)
[2020-02-10] MEDS: GABAPENTIN 100 MG CAP PO SCH ×2 (06:24→14:00)
[2020-02-10] MEDS: ACCU-CHEK COMFORT CURVE STRIP VI SCH ×3 (06:24→17:00)
[2020-02-10] MEDS: LEVOTHYROXINE SODIUM 50 MCG TAB PO SCH (06:24)
[2020-02-10] MEDS: InsuLIN REG 1unit/0.01ml Soln (100units/ml) SC SCH ×3 (06:25→17:00)
--- NOTE | 2020-02-10 06:50 | NUR ---
MELINA CHANGE DONE. MEDICATED PT FOR BACK PAIN 02/19. WALKER KEPT AT BEDSIDE FOR ASSISTANCE.
[2020-02-10] MEDS: MORPHINE SULF INJ 2 MG/ML SYRINGE 1ML IV PRN (06:51)
[2020-02-10] MEDS: FERROUS SULFATE 325 MG TAB PO SCH ×3 (08:13→18:02)
[2020-02-10] MEDS ORDERED: CLOPIDOGREL BISULFATE 75 MG TAB PO SCH ×2 (10:00)
[2020-02-10] MEDS ORDERED: PANTOPRAZOLE 40 MG TAB PO SCH (10:00)
[2020-02-10] MEDS: B-COMPLEX W/ C & FOLIC ACID(NEPHROVITE TAB) PO SCH (10:06)
[2020-02-10] MEDS: MAGNESIUM OXIDE 400 MG TAB PO SCH (10:06)
[2020-02-10] MEDS: methylPREDNISolone SOD SUCC 125 MG/2 ML VL IV SCH (10:06)
--- NOTE | 2020-02-10 11:05 | NUR ---
DR. GRULLON HERE TO SEE PATIENT. SEE MD NOTES AND EMR FOR ANY NEW ORDERS.
[2020-02-10 12:10] LABS: Basophils # (auto) 0 10 ^3/uL (0-0.2); Basophils % (auto) 0.1 % (0.0-2.0); Eosinophils # (auto) 0 10 ^3/uL (0-0.8); Hematocrit 31.9 % (41.0-53.0); Hemoglobin 10.6 g/dL (13.5-17.5); Lymphocytes # (auto) 0.1 10 ^3/uL (0.4-5.4); Lymphocytes % (auto) 1.2 % (10.0-50.0); Mean Corpuscular Hemoglobin 33.6 pg (28.0-32.0); Mean Corpuscular Hgb Conc. 33.4 g/dL (32.0-36.0); Mean Corpuscular Volume 100.5 fL (80.0-100.0); Monocytes # (auto) 0.7 10 ^3/uL (0-1.3); Monocytes % (auto) 5.5 % (0.0-12.0); Neutrophils % (auto) 93.2 % (37.0-80.0); Platelet Count (auto) 124 10^3/uL (140-450); Red Blood Cells 3.17 10^6/uL (4.5-5.90); White Blood Cell 11.8 10^3/uL (4.4-10.8)
--- NOTE | 2020-02-10 13:15 | NUR ---
DR. Galindo CONNELL HERE TO SEE PATIENT. SEE MD NOTES AND EMR FOR ANY NEW ORDERS.
--- NOTE | 2020-02-10 14:43 | NUR ---
Spoke with Jeremy DAMON from [facility] and gave verbal update on the patients's condition, including labs, x-rays and meds, EGD and colonoscopy results.
[2020-02-10] MEDS ORDERED: PANT40T PO (17:03)
[2020-02-10] MEDS ORDERED: PRED20TA2 PO (17:03)
--- NOTE | 2020-02-10 19:15 | NUR ---
OPENING NOTE/PT DISCHARGE DISCHARGE PAPERWORK DONE BY DAYSHIFT RN WHEN THIS RN CAME ON SHIFT AND ASSUMED CARE OF PT. PT IS RESTING IN BED, STABLE VITAL SIGNS. HE IS AWARE OF DISCHARGE BUT DOES NOT WANT TO LEAVE BECAUSE HE STATES HE IS IN PAIN, DESPITE MEASURES TAKEN TO RELIEVE PAIN- TYLENOL ADMIN AND REPOSITIONING. NORCO ADMINISTERED PER PT REQUEST. PT AT BEDSIDE TO ASSIST WITH GETTING HIM IN THE WHEELCHAIR TO TAKE HIM HOME. DISCHARGE INSTRUCTIONS AND EDUCATION GIVEN TO PT AND AT BEDSIDE. PT AGREED TO DISCHARGE ONCE EDUCATED AND SUPPORTED BY HIS . PLACED PT IN WHEELCHAIR WITH ALL BELONGINGS IN TOW AND IVS REMOVED- INTACT UPON REMOVAL. ALL QUESTIONS AND CONCERNS ADDRESSED.
[2020-02-11] MEDS ORDERED: SODIUM CHL 0.9% 1000 ML BAG XX ONE (07:00)
--- NOTE | 2020-02-11 09:48 | NUR ---
1272 02/11/20 - Faxed to [facility] at [phone] face sheet, order for home health evaluation, H/P and discharge summary. Pending review and arrangement of home health evaluation. Addendum: 02/11/20 at 1154 by Maria Mtz [facility] 1100 02/11/20 Contacted [facility] at [phone] spoke with case management coordinator Juliette who confirmed receiving all faxed clinicals and order being processed.
== END 2020-02-10 20:47 | disposition home health service (06) | DRG 840 ==
LOC: EDBD 14:11 → ER 14:11 → TELE 14:12 → TELE-CENTR 21:23 → ICU WEST 02-06 18:35
PROVIDERS: ADMIT Hospitalist; ATTEND Internal Medicine
PROC: 5A1D70Z Performance of Urinary Filtration, Intermittent, Less than 6 Hours Per Day (ICD-10-PCS; principal; 2020-02-07)
PROC: 30233N1 Transfusion of Nonautologous Red Blood Cells into Peripheral Vein, Percutaneous Approach (ICD-10-PCS; 2020-02-08)
PROC: 0DB68ZX Excision of Stomach, Via Natural or Artificial Opening Endoscopic, Diagnostic (ICD-10-PCS; 2020-02-09)
PROC: 0DJD8ZZ Inspection of Lower Intestinal Tract, Via Natural or Artificial Opening Endoscopic (ICD-10-PCS; 2020-02-09 09:30)
DX: C90.01 Multiple myeloma in remission (principal); R57.8 Other shock; N18.6 End stage renal disease; I50.23 Acute on chronic systolic (congestive) heart failure; D62 Acute posthemorrhagic anemia; K92.2 Gastrointestinal hemorrhage, unspecified; I13.2 Hypertensive heart and chronic kidney disease with heart failure and with stage 5 chronic kidney disease, or end stage renal disease; R74.8 Abnormal levels of other serum enzymes; E03.9 Hypothyroidism, unspecified; D69.6 Thrombocytopenia, unspecified; I25.10 Atherosclerotic heart disease of native coronary artery without angina pectoris; E78.5 Hyperlipidemia, unspecified; E83.42 Hypomagnesemia; K31.7 Polyp of stomach and duodenum; Z99.2 Dependence on renal dialysis; E11.22 Type 2 diabetes mellitus with diabetic chronic kidney disease; E11.40 Type 2 diabetes mellitus with diabetic neuropathy, unspecified; I25.2 Old myocardial infarction; Z20.828 Contact with and (suspected) exposure to other viral communicable diseases; Z79.02 Long term (current) use of antithrombotics/antiplatelets; Z79.4 Long term (current) use of insulin; Z79.82 Long term (current) use of aspirin; Z79.899 Other long term (current) drug therapy; Z80.0 Family history of malignant neoplasm of digestive organs; Z82.49 Family history of ischemic heart disease and other diseases of the circulatory system; Z85.72 Personal history of non-Hodgkin lymphomas
CPT/HCPCS: 36415; 43239; 45378; 71045; 80048; 80053; 80061; 80307; 81001; 82270; 82962; 83010; 83036; 83615; 83735; 83880; 84443; 84484; 85014; 85018; 85025; 85045; 85610; 85730; 86850; 86880; 86900; 86901; 86920; 87040; 87081; 87086; 87426; 90935; 93005; C9113; G0378; J1815; J2250